=== PATIENT | female | born 1990 | race Caucasian/White ===

== ENCOUNTER 2023-10-22 13:34 | Outpatient (CLI) | payer BC, SELFPAY ==
--- OUTSIDE RECORDS SUMMARY | 2023-11-07 16:36 | XMS_ITS | Clinical Summary ---
Author Organization [facility] Address [place], [place] [address] Care Team Providers Care Geriatric Care Manager Name Role Phone Ramon Bedolla NP Primary Care Provider [phone] Lisa Macias CNAustin Unavailable [phone] Allergies Active Allergy Reactions Criticality Noted Date Comments Amoxicillin Rash 05/26/2016 Tolerates cephalosporins Pollen Extracts Runny Nose 04/27/2018 DUST, POLLEN, MOLD, ....itchy watery eyes, stuffiness Medications Medication Sig Dispensed Refills Start Date End Date Status acetaminophen (TYLENOL EXTRA STRGTH) 500 mg tablet Take 2 tablets by mouth every 6 hours if needed. Max acetaminophen dose: 4000mg in 24 hrs. 0 06/20/2017 Active cholecalciferol (Vitamin D) 1,000 unit capsule Take 1 Capsule (1,000 units) by mouth once daily. 0 08/16/2020 Active melatonin 5 mg tab tablet Take 1 Tablet (5 mg) by mouth at bedtime if needed for Sleep. 0 08/16/2020 Active aspirin (ECOTRIN) 81 mg enteric coated tabletIndications:E ncounter for supervision of other normal in first trimester Take 1 Tablet (81 mg) by mouth once daily. 90 Tablet 3 11/20/2022 Active clotrimazole (LOTRIMIN) 1 % cream Apply topically to affected area(s) two times daily. To rash on back 06/16/2023 Active Httxxduy-Og-Msd-Fe- FA tab tabletIndications:H igh-risk in first trimester Take 1 Tablet by mouth once daily. 90 Tablet 3 06/16/2023 Active fluticasone (50 mcg per actuation) nasal solution (FLONASE)Indication s:Rhinitis medicamentosa INHALE 2 SPRAY(S) IN EACH NOSTRIL ONCE DAILY 16 g 8 09/11/2023 Active cetirizine (Allergy Relief, cetirizine,) 10 mg tabletIndications:S easonal allergies Take 1 tablet by mouth once daily 90 Tablet 2 09/13/2023 Active famotidine (PEPCID) 20 mg tabletIndications:H eartburn TAKE 1 TABLET BY MOUTH AT BEDTIME 90 Tablet 2 09/13/2023 Active Active Problems Problem Noted Date Diagnosed Date Obesity affecting in second trimester 08/05/2023 Low-lying placenta in second trimester 4 [facility] Supervision of high-risk 4 Overview: Napoleon Munoz : 1990 [facility] ULTRASOUND/TESTING PATIENT Support person name: Solo ULTRASOUND TYPE: 09/30/23 Growth US, TVS for low lying placenta REASON FOR VISIT: BMI > 30 NEXT VISIT ALERTS: Final MICHELE by LMP LMP Date: Patient's last menstrual period was 03/20/2023 (exact date). MICHELE: 12/25/23 Early US: Date: 05/26/23 GA: 9w4d MICHELE: 12/25/23 PrePregnancy Weight: 189 Height: 5'5.75 BMI: 30.7 PLANS & FUTURE APPOINTMENTS: ULTRASOUND/GROWTH PLAN: - Through: - Growth: Next TESTING PLAN: - Testing: Through DELIVERY PLAN: - Scheduled delivery: - Preferred delivery location: PRIMARY DIAGNOSIS: 33 y.o. Estimated Date of Delivery: 12/25/23 BMI 32 SAB x 2, IAB x 1 PREVIOUS ULTRASOUNDS: 08/05/23 ([facility] L2@19w5d) EFW 314 grams, percentile: 50, low lying posterior placenta with placental edge measuring 1.58cm from the internal os. (PCP)05/26/23 GA: 9w4d MICHELE: 12/25/23 ECHO: REFERRING PROVIDER/CLINIC: Lisa Macias CNM - [facility] Primary approves scheduling of recommended ultrasounds/testing: Yes SPECIALISTS/CONSULTS: Include: Specialty MD Clinic Name Phone# [place] and ADDED TO PATIENT CARE TEAM Yes GENETICS: NIPT: Low risk CARE COORDINATION: PERTINENT LABS: Labs reviewed? Yes Normal? Yes Blood type: B Rh Positive Antibody screen: Negative PERTINENT MEDS: bASA PLAN OF CARE: Original and updated POC 08/05/23 CB RECOMMENDATIONS: -Return to primary provider for continued care. -The option of amniocentesis was presented. -No medication changes are indicated. -No BPPs or NSTs recommended. -Recommend a follow up ultrasound at 28-32 weeks for growth and to evaluate placental location. Vaginal ultrasound is recommended with color Doppler even if the low lying placenta has resolved, since this is a risk factor for vasa previa. -Further delivery recommendations will depend on the findings of the next ultrasound. Seasonal allergies 06/16/2023 High platelet count 05/28/2023 High-risk in first trimester Overview: [facility] - at 33 y.o. FOB: Napoleon Final Estimated Date of Delivery: 12/25/2023 by LMP FOB: sex: girl High Risk? YES Obesity: pre preg BMI 30__ ~TWG recommendations _11-20__ lbs ~documentation of weight, nutrition and exercise every visit ~*new OB HGBA1C ___ ~routine GCT ___ ~ASA Yes - reviewed ~level II ___ ~growth no Low lying placenta-1.58 cm from internal os on level II ultrasound ~[facility] recommends follow up ultrasound at 28-32 weeks for growth and to evaluate placental location. ~Vaginal ultrasound is recommended with color Doppler even if the low lying placenta has resolved, since this is a risk factor for vasa previa. High platelet count- recheck at next visit, consider hematology referral if levels become significantly elevated 1- dating on 05/26/23- Single living intrauterine gestation at 9 weeks 4 days, EDC 12/25/2023. 2- Level II anatomy scan- SLIUP at 19w5d, EFW 314g (50%). Normal anatomy. DVP 6.53 CM. Cervical Length 3.8cm. Low lying placenta with edge 1.58cm from internal os. Follow up growth and placenta location with TV doppler at 28-32 weeks to rule out vasa previa. 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 Plan: colposcopy Cauda equina syndrome 06/19/20172020 Encounters Date Type Department Care Team Description 09/30/2023 8:26 AM CDT - 09/30/2023 11:59 PM CDT Hospital Encounter [facility] [address] [place] [address] Clover Kimball MD Supervision of high risk , antepartum (Primary Dx); Low-lying placenta in second trimester 09/30/2023 Travel 09/25/2023 Telephone [facility] [address] [place] [address] Brooke James CNM Form (written orders for sacroiliac support and breast pump) 09/12/2023 Refill [facility] [address] [place] [address] Ramon Bedolla, MARIELLA Refill Request (Famotidine) 09/12/2023 Refill [facility] [address] [place] [address] Ramon Bedolla, MARIELLA Refill Request (Allergy Relief (Cetirizine)) 09/11/2023 Refill [facility] [address] [place] [address] Ramon Bedolla, MARIELLA Refill Request (Fluticasone (50 Mcg Per Actuation) Nasal) 08/18/2023 4:00 PM CDT OB Encounter [facility] [address] [place] [address] Jasmina Mari CNM Care (MICHELE 12/25/23 GA 21w4d) 08/18/2023 Travel from Last 3 Months Immunizations Name Administration Dates Next Due DTaP 01/10/1997,10/18/1994,1991 ,1991 MMR 11/25/2003 Polio Virus, Unspecified 01/10/1997,10/18/1994,0 1991,1991 Td (Age >=7 Years) 11/25/2003 Tdap 07/26/2019 Family History Medical History Relation Name Comments Asthma Brother 1 Diabetes type II Brother 1 pre-diabeti c Sleep apnea Brother 1 Asthma Brother 2 Asthma Brother 3 No Known Problems Brother 4 Diabetes type II Father pre-diabeti c Other Father Disc herniation Sleep apnea Father Cancer-breast Maternal Aunt Cancer-colon Maternal Grandfather Parkinsonism Maternal Grandmother Autoimmune disease Mother Cancer-colon Mother Other Mother Cancer-breast Paternal Aunt No Known Problems Paternal Grandfather Clotting disorder No Family History Preeclampsia No Family History Unexplained No Family History no SI DS, IUFD Relation Name Status Comments Brother 1 Alive Brother 2 Alive Brother 3 Alive Brother 4 Alive Father Alive Maternal Aunt Maternal Grandfather Maternal Grandmother Mother Alive Paternal Aunt Paternal Grandfather Paternal Grandmother Social History Tobacco Use Types Packs/Day Years Used Date Smoking Tobacco: Never Passive Smoke Exposure: Never Smokeless Tobacco: Never Tobacco Cessation:Counseling Given: Not Answered Alcohol Use Standard Drinks/Week Comments No 0 (1 standard drink = 0.6 oz pur e alcohol) PHQ-2 Answer Date Recorded PHQ-2 TOTAL SCORE 0 06/16/2023 Social Connections Answer Date Recorded Frequency of Communication with Friends and Fami ly 0 06/16/2023 Financial Resource Strain Answer Date R ecorded Difficulty of Paying Living Expenses 3 06/16/2023 Difficulty of Paying Living Expenses Not on file 06/16/2023 Food Insecurity Answer Date Recorded Worried About Running Out of Food in the Last Ye ar 1 06/16/2023 Transportation Needs Answer Date Record ed Lack of Transportation (Medical) 1 06/16/2023 Housing Stability Answer Date Recorded Unable to Pay for Housing in the Last Year 1 06/16/2023 Estimated Date of Delivery Comme nts Yes 12/25/2023 Sex and Gender Information Value Date Recorded Sex Assigned at Not on file Gender Identity Not on file Sexual Orientation Not on file Obstetrics History Para Term AB IAB SAB Ectopic Multiple Livin g Live Births 4 0 0 0 3 0 2 0 0 0 0 Date Outcome GA Total Labor Labor/2nd/3rd Weight Sex Type Anes PTL Tisha A1 A5 Name Clin 2013 AB ELECTIV E AB Comments:System Genera elizabeth. Please review and update details. 022 SAB 9w0 d 023 SAB 10w 6d Current Summary Episode Dates Number of Fetuses Estimated Date of Delivery 05/26/2023 - Present (11/07/2023) 1 12/25/2023 (set by Kika Tate on 05/26/2023 based on Alternate MICHELE Entry) Dating Summary Based On MICHELE GA Diff Last Menstrual Period on 03/20/2023 (Exact Date) 12/25/2023 Same Alternate MICHELE Entry 12/25/2023 Working Vitals Pregravid Weight Height TWG (As of 11/07/2023) Pregrav id BMI 85.7 kg (189 lb) 1.67 m (5' 5.75) 6.8 kg (15 lb) 30.7 4 Date GA Fund Present FHR Mvmt BP Weight Edema Alb Glu Ket Dil/ Eff/Sta 4 19w5d Inpatient data not displayed here. See encounter summary. 27w5d Inpatient data not displayed here. See encounter summary. Notes Progress Notes - Hospital En counter - 09/30/2023 - GA:27w5d 09/30/2023 - 27w5d - Pete Lancaster MB[facility] Ultrasound Visit Your patient had an ultrasound with [facility] on 09/30/2023. The report is ready and can be found in the Results review section of the [facility] chart. Recommendations regarding further care are listed below. The Impression from the report is below. Thank you for sending her to see us. Referred By: LISA MACIAS Indications Code 27 weeks gestation of Z3A.27 Maternal Obesity - BMI >30 Low Risk NIPT IMPRESSIONS: Intrauterine at 27w 5d. presentation is Breech. EFW 1126 grams, percentile: 42. Deepest Vertical Pocket of amniotic fluid: 6.1 cm. No major anomalies were identified on limited survey. Appropriate symmetric interval growth. Transabdominal and transcervical ultrasound was performed to assess the placental relationship to cervical internal os. Placental location: Posterior. Placental edge lies 2.25 cm from the internal cervical os. No vasa previa was suspected. There is no evidence of placenta previa. The transabdominal cervical length is 4.4 cm. RECOMMENDATIONS: -Return to primary OB provider for continued care. -No follow up ultrasounds were scheduled with [facility]. COMMENT: The patient was seen by the Perinatologist today. The previous ultrasound and the records were reviewed. The results of today's ultrasound were communicated to the patient and answered relevant questions. New government regulations related to the Century Cures act require that this note be released to the patient immediately, sometimes before the referring provider has been contacted. A portion of the information was presented verbally to the patient. The remainder is submitted as background for the referring provider, to be discussed as needed. Medical Decision Making: Low Complexity 15235 Limited Diagnoses including with suspected placenta previa. Limited Data including review of prior ultrasound and review of prior external notes. Minimal risk of morbidity or mortality to the fetus from additional testing. Services Provided: Procedures Code FOLLOW UP GROWTH 41196.0 TRANSVAGINAL ULTRASOUND 77402.0 Progress Notes - OB Encounte r - 08/18/2023 - GA:21w4d 08/18/2023 - w4d - Jasmina Mari CNM 33 y.o. with SIUP at 21w4d Concerns today: Had vomiting and nausea for a few days. Feeling better now. Baby is active daily. Reviewed warning signs - no concerns. Explained GCT, plan to do at next visit Will review TDAP at next visit BPs remain normotensive. TWG +6.8 kg (15 lb), pre-gravid BMI 30.74 anatomy US reviewed: low lying placenta Encouraged pt to register for childbirth classes. 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 Teaching: FM, PTL risks & symptoms, OB warning signs, when/how to call. Orders Placed This Encounter GLUCOSE,GESTATIONAL CBC W PLT NO DIFF TREPONEMA PALLIDUM Jasmina Mari CNM .................... 08/18/2023 4:06 PM Progress Notes - Hospital En counter - 08/05/2023 - GA:19w5d 08/05/2023 - w5d - Clover Kimball MD [facility] Ultrasound 08/05/23 Your patient had an ultrasound with [facility] on 08/05/23 The report is ready and can be found in the Results review section of the [facility] chart. The Impression from the report is below. Thank you for the opportunity to participate in the care of this eleonora patient. Clover Kimball MD .................... 08/05/2023 2:20 PM Referred By: LISA MACIAS Indications Code 19 weeks gestation of Z3A.19 Maternal Obesity - BMI >30 Low Risk NIPT IMPRESSION: Intrauterine at 19w 5d. presentation is Cephalic. EFW 314 grams, percentile: 50. Growth parameters and estimated weight are appropriate for gestational age. No major structural anomalies identified. No markers for aneuploidy identified. Deepest Vertical Pocket of amniotic fluid: 6.53 cm. The cervical length is 3.8 cm. There is a low lying posterior placenta with placental edge measuring 1.58cm from the internal os. RECOMMENDATIONS: -Return to primary provider for continued care. -The option of amniocentesis was presented. -No medication changes are indicated. -No BPPs or NSTs recommended. -Recommend a follow up ultrasound at 28-32 weeks for growth and to evaluate placental location. Vaginal ultrasound is recommended with color Doppler even if the low lying placenta has resolved, since this is a risk factor for vasa previa. -Further delivery recommendations will depend on the findings of the next ultrasound. -The patient was directed to schedule with [facility] as discussed at their visit today. -Patient directed to schedule at the front desk receptionist on the way out, or to call [facility] within 2 business days to schedule follow up. CONSULT: Present findings are reassuring with respect to anatomy. Alternatives available for detecting anomalies, aneuploidy and predicting developmental outcome for this were thoroughly discussed. The risks, benefits and limitations of maternal serum screening, ultrasound, and genetic amniocentesis were thoroughly reviewed with the patient. At the conclusion of our visit the patient declined any further genetic testing, being satisfied by the risk reduction of today's normal ultrasound study. Counseling included that the finding of a low-lying placenta in the second trimester (placental edge <20mm from cervical os) was seen today. The majority of low- lying placentas diagnosed in the second trimester will resolve. Those that do not may increase the risk of antepartum/intrapartum vaginal bleeding. We recommend a follow up ultrasound at 28-32 weeks to evaluate placental location. Vaginal ultrasound with color Doppler is recommended since low lying placenta, even if resolved, is a risk factor for vasa previa. New government regulations related to the 21st Century Cures act require that this note be released to the patient immediately, sometimes before the referring provider has been contacted. A portion of the information was presented verbally to the patient. The remainder is submitted as background for the referring provider, to be discussed as needed. Medical Decision Making: Moderate Level 13754 Moderate number/complexity of problems including an undiagnosed new problem with uncertain prognosis (low lying placenta) Moderate amount and/or complexity of Data reviewed and analyzed including review of prior ultrasound, ordering another ultrasound, and review of prior external notes Low risk of morbidity or mortality from amniocentesis which was considered and declined. Services Provided: Procedures Code DETAIL ANATOMY 81994.0 Progress Notes - OB Encounte r - 06/30/2023 - GA:14w4d 06/30/2023 - w - Lisa Díaz CNM Estimated Date of Delivery: 12/25/23, 14w4d Reviewed weight and b/p (+ 0lbs since last visit, TWG 7lbs) Teaching: Kick Count, signs of labor, second trimester usual symptoms, nutrition, hydration, rest, exercise, child education options, when and how to call. Reviewed the first trimester labs and ultrasound results YES. Concerns: Nervous about miscarriage. Wanting to see baby by BSUS today if possible. Visualized, movement present during unofficial US. Panorama test Yes - WNL AFP screening 15-20 weeks Still deciding Early GCT screening: Not indicated ACOG criteria for early GDM screening reviewed. - The following risk factors are identified: BMI >25. - Plan for early GDM screening: no. Early GDM screening should be considered if BMI >25 (-Scottish w/ BMI >23) and any of the following criteria are met: Physical inactivity (sedentary lifestyle) First-degree relative with diabetes (type not specified) High-risk race/ethnicity (, , , Scottish, ) History of macrosomic (>4,000 g or 8 lb 13 oz) History of GDM in previous (early screen even if normal BMI) History of impaired glucose tolerance (A1c >5.6%, elevated fasting glucose, or abnormal glucose testing in previous ) Hypertension (BP > 140/90 or on therapy for HTN) History of cardiovascular disease Dyslipidemia - HDL < 35 mg/dL (0.90 mmol/L) or Triglycerides > 250 mg/dL (2.92 mmol/L) Clinical conditions associated with insulin resistance (pre-gravid BMI > 40 kg/m2, PCOS, acanthosis nigricans, physical inactivity) 05/26/2023 1:00 PM 06/16/2023 3:00 PM PHQ Depression Screening Date of PHQ exam (doc flow) 05/26/2023 06/16/2023 1. Lack of interest/pleasure 0 - Not at all 0 - Not at all 2. Feeling down/depressed 0 - Not at all 0 - Not at all PHQ-2 TOTAL SCORE 0 0 3. Trouble sleeping 2 - More than half the days 1 - Several days 4. Decreased energy 3 - Nearly every day 1 - Several days 5. Appetite change 3 - Nearly every day 1 - Several days 6. Feelings of failure 0 - Not at all 0 - Not at all 7. Trouble concentrating 0 - Not at all 0 - Not at all 8. Activity level 0 - Not at all 0 - Not at all 9. Hurting yourself 0 - Not at all 0 - Not at all PHQ-9 TOTAL SCORE 8 3 PHQ-9 Severity Level mild none Functional Impairment somewhat difficult not difficult at all Anatomy ultrasound ordered: yes Level II at [facility] Reviewed AVS with patient and has no other questions. Lisa Macias APRN CNM 06/30/2023 11:15 AM MARTHA charting has been reviewed and approved for this patient? s record. Jasmina Mari CNM .................... 06/30/2023 2:02 PM MERCHANT Progress Notes - OB Encounte r - 05/26/2023 - GA:9w4d 05/26/2023 - 9w4d - Anam James CNM Images from the original note were not included. FIRST OBSTETRICAL EXAM - CNM HPI: Dora Munoz is a 33 y.o. female, , here today to establish care with the [facility]. Previous [facility] CNM patient yes. Gestational Age: Unknown LMP: Patient's last menstrual period was 03/20/2023 (exact date). Estimated Date of Delivery: 12/25/2023. Based on LMP, confirmed by first trimester ultrasound yes. High Risk: Obesity Accompanied by: Napoleon Patient Concerns Today: Fatigue Nausea- feels better if she eats throughout day. Naked juices help. Recurrent loss- worried about another loss happening Previous care for this : serial HCGs Planned : Planned, Desired FOB: Napoleon, involved Other children: no symptoms: nausea, fatigue, and food aversions Bleeding since LMP: Yes - has one occurrence of spotting about 2 weeks ago, no spotting since Blood type: B Rh Positive Pre- weight: 189 lbs Pre- BMI: 30.74 Dietary restrictions: No Maternal ethnicity: /White, Language: Tanzanian. Partner ethnicity: /White, Language: Tanzanian. ALLERGIES Allergies Allergen Reactions Amoxicillin Rash Tolerates cephalosporins Pollen Extracts Runny Nose DUST, POLLEN, MOLD, ....itchy watery eyes, stuffiness CURRENT MEDICATIONS Current Outpatient Medications: acetaminophen (TYLENOL EXTRA STRGTH) 500 mg tablet, Take 2 tablets by mouth every 6 hours if needed. Max acetaminophen dose: 4000mg in 24 hrs., Disp: , Rfl: 0 Allergy Relief, cetirizine, 10 mg tablet, Take 1 tablet by mouth once daily, Disp: 90 Tablet, Rfl: 0 aspirin (ECOTRIN) 81 mg enteric coated tablet, Take 1 Tablet (81 mg) by mouth once daily., Disp: 90 Tablet, Rfl: 3 cholecalciferol (Vitamin D) 1,000 unit capsule, Take 1 Capsule (1,000 units) by mouth once daily., Disp: , Rfl: 0 clotrimazole (LOTRIMIN) 1 % cream, Apply topically to affected area(s) two times daily for 14 days., Disp: 45 g, Rfl: 0 famotidine (PEPCID) 20 mg tablet, Take 1 Tablet (20 mg) by mouth at bedtime., Disp: , Rfl: 0 fluticasone (50 mcg per actuation) nasal solution (FLONASE), Inhale 2 Sprays to both nostrils once daily., Disp: 16 g, Rfl: 1 melatonin 5 mg tab tablet, Take 1 Tablet (5 mg) by mouth at bedtime if needed for Sleep., Disp: , Rfl: 0 Dpujvmmn-Lg-Qqr-Fe-FA tab tablet, Take 1 Tablet by mouth once daily., Disp: , Rfl: Medications have been reviewed by me and are current to the best of my knowledge and ability. Reviewed yes MENSTRUAL HISTORY Patient's last menstrual period was 03/20/2023 (exact date). regular q 28-30 days Was LMP normal?: yes Conception date known- not exact OB HISTORY OB History Para Term AB Living 3 0 0 0 3 0 SAB IAB Ectopic Multiple Live Births 2 0 0 0 0 # Outcome Date GA Lbr Yariel/2nd Weight Sex Delivery Anes PTL Lv 3 SAB 11/16/22 10w6d 2 SAB 04/15/22 9w0d 1 AB 2013 ELECTIVE AB Comments: System Generated. Please review and update details. Previous OB complications (recurrent loss/miscarriage, demise, abnormal growth, labor / dilation / , gestational diabetes, gestational HTN, preeclampsia, shoulder dystocia, vacuum/forceps delivery, , hemorrhage, trauma, 3rd/4th degree lacerations, NICU admission): No Genetic Hx/factors (maternal or paternal known history of personal or familial genetic mutations or disorders, developmental delay/disorder, autism, congenital anomalies including blindness or deafness, or other known genetic conditions): no. Familial risk factors (first-order relatives with diabetes, hypertension, preeclampsia, recurrent loss, DVT/PE, stroke, genetic mutations): no. 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 & Units 03/31/2018 11:25 AM 04/28/2018 11:49 AM 07/26/2019 2:10 PM 08/16/2020 9:17 AM 09/14/2020 11:28 AM 02/20/2022 10:15 AM 02/14/2023 10:55 AM Cervical Cancer Screening History Pap Result (Beaker) (none) NEGATIVE FOR INTRAEPITHELIAL LESION OR MALIGNANCY (NIL) NEGATIVE FOR INTRAEPITHELIAL LESION OR MALIGNANCY (NIL) NEGATIVE FOR INTRAEPITHELIAL LESION OR MALIGNANCY (NIL) NEGATIVE FOR INTRAEPITHELIAL LESION OR MALIGNANCY (NIL) Specimen Adequacy Satisfactory for evaluation Endocervical component present Satisfactory for evaluation Endocervical component present Satisfactory for evaluation Endocervical component present Satisfactory for evaluation Endocervical component present Menstrual Status Regular Periods Regular Periods Regular Periods Regular Periods LMP 07/17/2019 07/28/2020 01/26/2022 01/08/2023 Last pap date (user entered) 03/10/18 07/26/19 08/16/20 02/20/22 Last pap result (user entered) LSIL NIL NIL NIL Additional info (user entered) None given None given None given None given HPV Result (Beaker) Negative Negative Positive HPV Type 16 Negative Negative Negative HPV Type 18 Negative Negative Negative Other High Risk Types Negative Negative Negative Colposcopy Yes Path Diagnosis (Beaker) A) CERVIX, 3 O'CLOCK, BIOPSY: 1. Benign cervical mucosa a. Sampling: Ectocervix and minimal detached endocervical epithelium b. Transformation zone: Not visualized 2. Negative for glandular neoplasia, squamous intraepithelial lesion, and malignancy B) CERVIX, 7:00, BIOPSY: 1. High grade squamous intraepithelial lesion (YUE 2-3) a. Sampling: Ectocervix, disrupted dysplastic metaplastic epithelium and scant endocervix b. Intact transformation zone: Not visualized 2. Negative for invasive carcinoma C) ENDOCERVIX, CURETTAGE: 1. High grade squamous intraepithelial lesion (YUE 2-3) 2. Sampling: Ectocervix and endocervix 3. Negative for invasive carcinoma CERVIX, LEEP CONIZATION: 1. High grade squamous intraepithelial lesion (YUE 3) a. Sampling: Ectocervix and endocervix b. Transformation zone: Visualized in all quadrants c. Margin status: i. Ectocervical margin: Free of YUE ii. Endocervical margin: Free of YUE 2. Negative for invasive malignancy Path Comment (Beaker) This patient's Pap test [id number] (LSIL) is reviewed. The Pap test findings appear to be explained by the findings in the current specimens. Case Report (specimen info) Pathology Report Case: [id number] Authorizing Provider: Megha Garcia Collected: 03/31/2018 1125 MD Birgit Ordering Location: [facility] Received: 03/31/2018 1241 Clinic Pathologist: Luiza Fuentes MD Specimens: A) - Cervix, 3 oclock B) - Cervix, 7 oclock C) - Endocervical Curettings Pathology Report [id number]: [id number] Authorizing Provider: Ángela Bunch MD Collected: 04/28/2018 1149 Ordering Location: [facility] Received: 04/28/2018 1227 Pathologist: Scout Hartley MD Specimen: Cervical Cone / LEEP, cervical cone LEEP, stitch at 12:00 Gynecologic Cytology Report [id number]: [id number] Authorizing Provider: Ramon Bedolla NP Collected: 07/26/2019 1410 Ordering Location: [facility] Received: 07/26/2019 1459 Clinic First Screen: Shyanne Gastelum Rescreen: Denae Lozano MD Specimen: TOLL OPERATOR ThinPrep Vial Screening, Cervical Gynecologic Cytology Report Case: [id number] Authorizing Provider: Ramon Bedolla NP Collected: 08/16/2020 0917 Ordering Location: [facility] Received: 08/16/2020 1013 Clinic First Screen: Baccam, Minie Specimen: TOLL OPERATOR ThinPrep Vial Screening, Cervical Gynecologic Cytology Report Case: [id number] Authorizing Provider: Ramon Bedolla NP Collected: 02/20/2022 1015 Ordering Location: [facility] Received: 02/20/2022 1041 Clinic First Screen: Baccam, Minie Rescreen: Tammy Freedman Specimen: TOLL OPERATOR ThinPrep Vial Screening, Cervical Gynecologic Cytology Report Case: [id number] Authorizing Provider: Nicky Crum CNM Collected: 02/14/2023 1055 Ordering Location: [facility] Received: 02/14/2023 1055 Clinic First Screen: Baccam, Minie Specimen: TOLL OPERATOR ThinPrep Vial Screening, Cervical Clinical info LGSIL YUE III 03/10/18 LSIL 03/31/18 COLP:YUE 2-3 04/28/18 LEEP:YUE 3, clear margins 07/26/19 NIL/HPV negative 08/16/20 NIL/HPV+ 09/14/20 [place]: Negative 02/20/22 NIL/HPV Negative 02/14/23 NIL/HPV Negative Plan: Pap and HPV 01/2024 PAP due: 01/2024 History of abnormal PAP smear: YES History of Colposcopy: YES History of LEEP/Laser/Cryo: YES Hx of breast / abdominal / uterine surgery: no STD HX: no HSV: no CHLAMYDIA PROBE Date Value Ref Range Status 04/03/2015 Negative Final N GONORRHOEAE PROBE Date Value Ref Range Status 04/03/2015 Negative Final PAST MEDICAL HISTORY Past Medical History: . Date Asthma Chronic back pain Migraine headache PAST SURGICAL HISTORY Past Surgical History: . Laterality Date COLPOSCOPY 03/31/2018 YUE 2-3 LAMINECTOMY, DISCECTOMY L5-S1 06/19/2017 LEEP PROCEDURE 04/28/2018 YUE 3, margins clear wart removed Lt foot FAMILY HISTORY Family History Problem Relation Age of Onset Other Mother Cancer-colon Mother Autoimmune disease Mother Other Father Disc herniation Diabetes type II Father pre-diabetic Sleep apnea Father Sleep apnea Brother Diabetes type II Brother pre-diabetic Asthma Brother Asthma Brother Asthma Brother No Known Problems Brother Parkinsonism Maternal Grandmother Cancer-colon Maternal Grandfather No Known Problems Paternal Grandfather Cancer-breast Maternal Aunt Cancer-breast Paternal Aunt Clotting disorder No Family History Unexplained No Family History no SIDS, IUFD Preeclampsia No Family History SOCIAL HISTORY Social History Tobacco Use Smoking Status Never Smokeless Tobacco Never Social History Socioeconomic History Marital status: Significant other Tobacco Use Smoking status: Never Smokeless tobacco: Never Vaping Use Vaping Use: Never used Substance and Sexual Activity Alcohol use: No Alcohol/week: 0.0 standard drinks of alcohol Drug use: No Sexual activity: Yes Partners: Male control/protection: None Social History Narrative Marital Status: , name: Napoleon, 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 Plans to continue until and then step away Living situation: living at home with family Animal exposure:dogs Diet: Water intake: adequate yes, calcium 2-3 servings per day yes, room for improvement, Dietary restrictions: Yes - avoids aspartame Caffeine: 1 cup a coffee a day, occasionally tea Access to food yes, referral to social security specialist no Safety Guns: No, locked Screening for sexual, physical or emotional abuse in childhood, adulthood or current relationship: unable to ask, pt not alone Have you ever been hit, kicked, pushed, or otherwise hurt or mistreated by someone important to you? unable to ask, pt not alone Is someone important to you yelling at you or threatening you or otherwise trying to control your life? unable to ask, pt not alone referral ADELFO Seat belt yes, texting when driving No RISK FACTORS Alcohol dependence: no Tobacco use: no Recreational drug use: none High-risk behaviors: none Occupational exposures: No Screening: Last dental exam yes- about 2 yrs ago Last eye exam no - does not need Ok with medically indicated transfusion yes Exercise: walking and hiking, harder in the last year RISK FACTORS DVT/PE: no Renal disease: no Alcohol dependence: no Tobacco use: no Recreational drug use: none High-risk behaviors: none Occupational exposures: none Screening for sexual, physical or emotional abuse in childhood, adulthood or current relationship: unable to ask, pt not alone REVIEW OF SYSTEMS: Constitutional: Negative for anorexia , weight loss , fever , and chills . POSITIVE for fatigue Respiratory: Negative for cough, dyspnea , and wheezing . Cardiovascular: Negative for chest discomfort, palpitations, lightheadedness , syncope , and leg edema . Gastrointestinal: Negative for vomiting , change in bowel habits , and melena . Positive for nausea Genitourinary:Negative for dysuria , urinary incontinence , and hematuria . Integument/breast: Negative for skin lesion(s), pruritis , skin color change , changed mole , breast lump, and nipple discharge . POSITIVE for rash between breasts and mid back Hematologic/lymphatic: Negative for easy bruising , bleeding, lymphadenopathy , and petechiae. Musculoskeletal:Negative for muscle weakness and bone pain . Neurological: Negative for seizures , speech problems , gait problems , and tremor. Psychiatric: Negative for panic attacks , hallucinations, and suicidal ideations . Endocrine: Negative for temperature intolerance. Allergic/Immunologic: Negative for angioedema and anaphylaxis . DEPRESSION SCREEN PHQ Score and Severity 11/20/2022 2:00 PM 05/26/2023 1:00 PM PHQ Depression Screening Date of PHQ exam (doc flow) 11/20/2022 05/26/2023 1. Lack of interest/pleasure 0 - Not at all 0 - Not at all 2. Feeling down/depressed 0 - Not at all 0 - Not at all PHQ-2 TOTAL SCORE 0 0 3. Trouble sleeping 0 - Not at all 2 - More than half the days 4. Decreased energy 1 - Several days 3 - Nearly every day 5. Appetite change 1 - Several days 3 - Nearly every day 6. Feelings of failure 0 - Not at all 0 - Not at all 7. Trouble concentrating 0 - Not at all 0 - Not at all 8. Activity level 0 - Not at all 0 - Not at all 9. Hurting yourself 0 - Not at all 0 - Not at all PHQ-9 TOTAL SCORE 2 8 PHQ-9 Severity Level none mild Functional Impairment not difficult at all somewhat difficult Intervention: Feels stable. Feels like mostly related to first trimester fatigue. YELENA Score and Severity 11/20/2022 2:00 PM 05/26/2023 1:00 PM YELENA-7 ANXIETY SCREENING YELENA date (doc flow) 11/20/2022 05/26/2023 Nervous, anxious 1 1 Cannot stop worrying 1 0 Worry about different things 1 0 Cannot relax 1 0 Feeling restless 0 0 Easily annoyed/irritated 1 1 Afraid of awful event 1 1 Score 6 3 Severity mild anxiety none PHYSICAL EXAM BP 110/54 (Cuff Site: Right Arm, Cuff Size: Adult Regular) Pulse 72 Ht 1.67 m (5' 5.75) Wt 88.9 kg (196 lb) LMP 03/20/2023 (Exact Date) BMI 31.88 kg/m?? General: well groomed, appears healthy, NAD. Psych: alert, oriented, behaviors appropriate. Neck/Thyroid: supple, symmetrical, no lymphadenopathy or masses. Lungs: normal chest wall, unlabored respirations, lungs clear to all bases. Heart: regular rate and rhythm, normal S1 S2, no murmur, click, gallop, or rub. Breast: full exam deferred. Skin exam- small patches of slightly raised plaques with flaky appearance- looks fungal in nature Abdomen: normal contour, soft, non-tender, uterine fundus not palpable, FHT not yet heard . Neuro: grossly intact, normal gait and speech, no tremor MSK: grossly normal, full ROM and normal strength w/ no deficits observed. Skin: intact, well perfused, small patches of slightly raised plaques with flaky appearance- looks fungal in nature <1cm. Mid back and between breasts. Pelvic: declined, not due for PAP and no concerns ASSESSMENT 33 y.o. at Unknown Encounter for New OB Midwifery visit Encounter Diagnoses Name Primary? High-risk in first trimester Yes Tinea corporis Patient's pre- BMI: 30.74 Recommended weight gain in based on pre- BMI: Prepgt BMI Recommended weight gain 18.5 and below 28 to 40 pounds 18.5 - 24.9 25 to 35 pounds 25 - 29.9 15 to 25 pounds 30 and Above 11 to 20 pounds Ms. Munoz's Body mass index is 31.88 kg/m??. This is out of the normal range for a 33 y.o. Normal range for ages 18+ is between 18.5 and 24.9. To lose weight we reviewed risks and benefits of appropriate options such as diet, exercise, and medications. Patient's strategy will be monitoring during - weight loss NOT recommended in PLAN Oriented to Hilary THOMAS service, care model, routine visits, locations, contact information, and patient education resources. Education: Hilary Thomas OB packet and Beginnings book/web site, healthy nutrition, dietary supplements, hydration, exercise, sleep hygiene, stress management, medication safety, avoidance of alcohol and drug use, physical and emotional changes of , options for genetic testing (carrier & ). Reviewed AVS with patient. Invite for compass sent. OB Care Coordination: Dating ultrasound - Yes had today. Dates align Maternal carrier screening for CF, SMA - No. genetic screening - will ask insurance . Indication for level II anatomy ultrasound? Yes - BMI >30 , order placed No Other indication for MPP consult? No Immunizations due: Influenza and COVID Labs: - New OB panel Yes - collected today , ok to review labs and POC via DocVersehart - Pap No- will be due at visit - GC/CT Yes - self collected today . -TGC No symptoms. - Additional testing indicated Yes - hgba1c collected . Current medications reviewed - changes indicated: No changes indicated. Recommendations for vitamin, folic acid, calcium and vitamin D3 reviewed . ACOG criteria for early GDM screening reviewed - identified risk factors in BOLD below. - Plan for early GDM screening: No - Plan: NEW OB HGBA1C Early GDM screening should be considered if BMI >25 (-Scottish w/ BMI >23) and any of the following criteria are met: -Physical inactivity -First-degree relative with diabetes -Racial/ethnic risk (, , , -Scottish, ) -History of weight >4 kg (~9 lbs) -History of GDM -PCOS -A1c >5.7%, impaired glucose tolerance, or impaired fasting glucose on prior testing -Clinical conditions associated w/ insulin resistance (pre-gravid BMI >40, acanthosis nigricans) -History of cardiovascular disease USPTF recommendations for low-dose ASA reviewed - identified risk factors in BOLD below. - Patient does not have history of gestational hypertension or pre eclampsia . - Low-dose ASA indicated per these guidelines: Yes - HIGH RISK (if any ONE of these risk factors) -Hx of preeclampsia; dena when accompanied by adverse outcome -Multifetal gestation -Chronic HTN -Type 1 or 2 diabetes -Renal disease -Autoimmune disease (SLE, antiphospholipid antibody syndrome, other) MODERATE RISK (consider if two or more of these) -Nulliparity -Obesity w BMI>30 -Family hx of preeclampsia (mother or sister) -Socio-demographic characteristics ( ethnicity, low SES) -Age > or = to 35 years -Personal hx factors (low weight, SGA, previous adverse outcome, > 10 year interval) LOW RISK (do not recommend low-dose aspirin) - Previous uncomplicated full-term delivery w/o hypertension HIGH RISK care plans added to OB problem list entry: Obesity Return to office in 4-6 week(s). 11. Discussed compass via mychart yes Rx for topical antifungal written for likely corpus tinea Total time: spent 70 minutes for this encounter including patient counseling & examination, documentation & care coordination. Brooke James CNM DNP, CARGO HANDLER, MARTHA.................... [facility] Added to tracks MERCHANT Last Filed Vital Signs Vital Sign Reading Time Taken Comments Blood Pressure 120/74 08/18/2023 3:58 PM CDT Pulse 90 08/18/2023 3:58 PM CDT Temperature 36.8 ??C (98.3 ??F) 06/11/2022 3:44 PM CS T Respiratory Rate 16 04/15/2022 7:23 PM WINE MERCHANT Oxygen Saturation 98% 06/11/2022 3:44 PM WINE MERCHANT Inhaled Oxygen Concentration - - Weight 92.5 kg (204 lb) 08/18/2023 3:58 PM CDT Height 167 cm (5' 5.75) 06/16/2023 2:51 PM WINE MERCHANT Body Mass Index 33.18 06/16/2023 2:51 PM WINE MERCHANT Plan of Treatment Health Maintenance Due Date Last Done Comments COVID-19 vaccine series ( season) 2023 Influenza for age 9-49 01/18/2024 Pap test for age 21-65 02/15/2024 3, 02/14/2023, 02/20/2022, Additional history exists BMI (ht and wt on same day) for age 18+ 06/16/2024 06/16/2023, 05/26/2023, 11/20/2022, Additional history exists Depression screening for age 12+ 06/16/2024 06/16/2023, 05/26/2023, 11/22/2022, Additional history exists Tetanus booster 07/25/2029 07/26/2019, 11/25/2003 Tdap Completed 07/26/2019 HIV for age 15-65 Completed 05/26/2023, 11/20/2022 Hepatitis C screening for age 18-79 Completed 05/26/2023, 11/20/2022, 02/20/2022 Pneumococcal series for age 6-64 Aged Out No longer eligible based on patient's age to complete this topic Procedures Procedure Name Priority Date/Time Associated Diagnosis Comments US OB FOLLOW UP ANY TRI SINGLE TA Routine 09/30/2023 9:23 AM CDT Low-lying placenta in second trimester ANTI HIV 1/2 Routine 05/26/2023 2:10 PM WINE MERCHANT High-risk in first trimester ANTI HCV Routine 05/26/2023 2:10 PM WINE MERCHANT High-risk in first trimester HPV THIN PREP Routine 02/14/2023 10:55 AM CDT Screening for cervical cancer from Last 3 Months or Most Recently Relevant to Health Maintenance Results * Growth Follow Up Any Trimester (CPT 83750) If BPP w/NST needed use Testing section for order (09/30/2023 9:23 AM CDT) Anatomical Region Laterality Modality , 2or 3 TRIMESTER Ultrasound 09/30/2023 8:28 AM CDT Narrative 09/30/2023 9:31 AM CDT Referred By: LISA MACIAS ?? Indications Code 27 weeks gestation of Z3A.27 Maternal Obesity - BMI >30 Low Risk NIPT IMPRESSIONS: Intrauterine at 27w 5d. presentation is Breech. EFW 1126 grams, percentile: 42. Deepest Vertical Pocket of amniotic fluid: 6.1 cm. ? No major anomalies were identified on limited survey. Appropriate symmetric interval growth. Transabdominal and transcervical ultrasound was performed to assess the placental relationship to cervical internal os. Placental location: Posterior. Placental edge lies 2.25 cm from the internal cervical os. No vasa previa was suspected. There is no evidence of placenta previa. The transabdominal cervical length is 4.4 cm. ?? RECOMMENDATIONS: -Return to primary OB provider for continued care. -No follow up ultrasounds were scheduled with [facility]. COMMENT: The patient was seen by the Perinatologist today. ??The previous ultrasound and the records were reviewed. ??The results of today's ultrasound were communicated to the patient and answered relevant questions. New government regulations related to the Cures act require that this note be released to the patient immediately, sometimes before the referring provider has been contacted. ??A portion of the information was presented verbally to the patient. ??The remainder is submitted as background for the referring provider, to be discussed as needed. Medical Decision Making: Low Complexity 37676 ?Limited Diagnoses including with suspected placenta previa. ?Limited Data including review of prior ultrasound and review of prior external notes. ?Minimal risk of morbidity or mortality to the fetus from additional testing. Services Provided: Procedures Code FOLLOW UP GROWTH 25544.0 TRANSVAGINAL ULTRASOUND 04810.0 Procedure Note Pete Lancaster MBBS - 09/30/2023 Referred By: LISA MACIAS IndicationsCode 27 weeks gestation of [id number] Maternal Obesity - BMI >30 Low Risk NIPT IMPRESSIONS: Intrauterine at 27w 5d. presentation is Breech. EFW 1126 grams, percentile: 42. Deepest Vertical Pocket of amniotic fluid: 6.1 cm. No major anomalies were identified on limited survey. Appropriate symmetric interval growth. Transabdominal and transcervical ultrasound was performed to assess theplacental relationship to cervical internal os. Placental location: Posterior. Placental edge lies 2.25 cm from theinternal cervical os. No vasa previa was suspected. There is no evidence of placenta previa. The transabdominal cervical length is 4.4 cm. RECOMMENDATIONS: -Return to primary OB provider for continued care. -No follow up ultrasounds were scheduled with [facility]. COMMENT: The patient was seen by the Perinatologist today. The previous ultrasoundand the records were reviewed. The results of today's ultrasound werecommunicated to the patient and answered relevant questions. New government regulations related to the Cures act requirethat this note be released to the patient immediately, sometimes before the referringprovider has been contacted. A portion of the information was presented verbally to thepatient. The remainder is submitted as background for the referring provider, to be discussed asneeded. Medical Decision Making: Low Complexity 32803 Limited Diagnoses including with suspected placentaprevia. Limited Data including review of prior ultrasound and review of priorexternal notes. Minimal risk of morbidity or mortality to the fetus from additionaltesting. Services Provided: ProceduresCode FOLLOW UP TQRNIN16067.0 TRANSVAGINAL [id number] Clover Kimball MD US * ANTI HCV (05/26/2023 2:10 PM WINE MERCHANT) Pathologist [facility] HEPATITIS C ANTIBODY Non-Reacti ve Non-React brianna 05/26/2023 11:21 PM WINE MERCHANT [facility] Comment:Please note, per www .CDC.gov: If a patient is known to be at high risk of HCV infection, or is symptomatic, and the physician's suspicion of HCV infection is high, HCV RNA testing is often employed and is of diagnostic value, even after an initial negative anti-HCV test result. Blood BLOOD SPECIMEN / Unknown Venipuncture / Unknown 05/26/2023 2:10 PM WINE MERCHANT 05/26/2023 2:10 PM WINE MERCHANT Brooke James CNM [facility] [address] [place] [address], [place] * ANTI HIV 1/2 (05/26/2023 2:10 PM WINE MERCHANT) HIV-1/HIV-2 SCREEN Non-Reacti ve Non-Reacti ve 05/26/2023 11:04 PM WINE MERCHANT [facility] Comment:HIV-1 p24 and HIV-1/ HIV-2 Ab Not Detected. Blood BLOOD SPECIMEN / Unknown Venipuncture / Unknown 05/26/2023 2:10 PM WINE MERCHANT 05/26/2023 2:10 PM WINE MERCHANT Brooke James CNM SEND OUTS [facility] [address] [place] [address], * HPV HIGH RISK (02/14/2023 10:55 AM CDT) Pathologist [facility] TYPE 16 Negative Negative 02/20/2023 11:10 AM CDT [facility] TYPE 18 Negative Negative 02/20/2023 11:10 AM CDT [facility] OTHER HIGH RISK TYPES Negative Negative 02/20/2023 11:10 AM CDT [facility] Other (Cervical) Non-Blood / Unknown 02/14/2023 10:55 AM CDT 02/18/2023 7:07 AM CDT Narrative [facility] - 02/20/2023 11:10 AM CDT HPV types 16, 18, 31, 33, 35, 39, 45, 51, 52, 56, 58, 59, 66 and 68 DNA were undetectable or below the pre-set threshold. Methodology: [employer] Annmarie 4800 HPV Test Nicky Crum CNM MICROBIOLOGY [facility] [address] [place] [address], from Last 3 Months or Most Recently Relevant to Health Maintenance Advance Directives * Full Code (Latest Code Status on File) Date Activated Date Inactivated Comments 04/28/2018 9:05 AM 04/28/2018 3:15 PM * Full Code Date Activated Date Inactivated Comments 06/19/2017 7:34 PM 06/20/2017 4:59 PM * Full Code Date Activated Date Inactivated Comments 06/19/2017 1:47 PM 06/19/2017 7:34 PM * Full Code Date Activated Date Inactivated Comments 06/19/2017 1:38 PM 06/19/2017 1:47 PM Care Teams Geriatric Care Manager Relationship Specialty Start Date End Date Ramon Bedolla NP [address] [place] [address] PCP - General Nurse Practitioner 04/27/18 Lisa Macias CNM [address] [facility] [address] [place] [address] Referring Provider Certified Nurse Sheet Metal Duct Worker Supervisor 06/30/23
== END 2023-10-22 13:35 | disposition home or self-care (01) ==
LOC: NFLDREF 11-07 16:34
PROVIDERS: Visit Provider Physician Assistant
DX: Z34.83 Encounter for supervision of other normal pregnancy, third trimester (principal)
CPT/HCPCS: 86592

== ENCOUNTER 2023-10-24 09:11 | Outpatient (CLI) | payer BC, SELFPAY ==
--- OUTSIDE RECORDS SUMMARY | 2023-11-11 09:11 | XMS_ITS | Clinical Summary ---
Author Organization [facility] Address [place], [place] [address] Care Team Providers Care Assistant Professor Of Dietetics Name Role Phone Ramon Bedolla NP Primary Care Provider [phone] Lisa Macias CNAustin Unavailable [phone] Allergies Active Allergy Reactions Criticality Noted Date [...] daily. To rash on back 06/16/2023 Active Ldrnnewd-Lv-Bac-Fe- FA tab tabletIndications:H igh-risk in first trimester [...] 08/05/2023 Low-lying placenta in second trimester 4 [facility] Supervision of high-risk 4 Overview: Napoleon Munoz : 1990 [facility] ULTRASOUND/TESTING PATIENT Support person name: Solo [...] 2, IAB x 1 PREVIOUS ULTRASOUNDS: 08/05/23 ([facility] L2@19w5d) EFW 314 grams, percentile: 50, [...] from internal os on level II ultrasound ~[facility] recommends follow up ultrasound at 28-32 [...] margins 07/26/19 NIL/HPV negative 08/16/20 NIL/HPV+ 09/14/20 Galien: Negative 02/20/22 NIL/HPV Negative 02/14/23 NIL/HPV Negative [...] - 09/30/2023 11:59 PM CDT Hospital Encounter [facility] [address] [place] [address] Clover Kimball MD Supervision of high risk , antepartum (Primary Dx); Low-lying placenta in second trimester 09/30/2023 Travel 09/25/2023 Telephone [facility] [address] [place] [address] Brooke James CNM Form (written orders for sacroiliac support and breast pump) 09/12/2023 Refill [facility] [address] [place] [address] Ramon Bedolla, MARIELLA Refill Request (Famotidine) 09/12/2023 Refill [facility] [address] [place] [address] Ramon Bedolla, MARIELLA Refill Request (Allergy Relief (Cetirizine)) 09/11/2023 Refill [facility] [address] [place] [address] Ramon Bedolla, MARIELLA Refill Request (Fluticasone (50 Mcg Per Actuation) Nasal) 08/18/2023 4:00 PM CDT OB Encounter [facility] [address] [place] [address] Jasmina Mari CNM Care (MICHELE 12/25/23 GA [...] Estimated Date of Delivery 05/26/2023 - Present (11/11/2023) 1 12/25/2023 (set by Kika Tate on 05/26/2023 based on Alternate MICHELE Entry) Dating Summary Based On MICHELE [place] Diff Last Menstrual Period on 03/20/2023 (Exact Date) 12/25/2023 Same Alternate MICHELE Entry 12/25/2023 Working Vitals Pregravid Weight Height TWG (As of 11/11/2023) Pregrav id BMI 85.7 kg (189 lb) [...] 09/30/2023 - 27w5d - Pete Lancaster MBBS [facility] Ultrasound Visit Your patient had an ultrasound with [facility] on 09/30/2023. The report is ready and can be found in the Results review section of the [facility] chart. Recommendations regarding further care are listed [...] -No follow up ultrasounds were scheduled with [facility]. COMMENT: The patient was seen by [...] as needed. Medical Decision Making: Low Complexity 15663 Limited Diagnoses including with suspected placenta previa. Limited Data including review of prior ultrasound and review of prior external notes. Minimal risk of morbidity or mortality to the fetus from additional testing. Services Provided: Procedures Code FOLLOW UP GROWTH 21761.0 TRANSVAGINAL ULTRASOUND 78763.0 Progress Notes - OB Encounte r - [...] pt to register for childbirth classes. 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 [...] 08/05/23 Your patient had an ultrasound with [facility] on 08/05/23 The report is ready and can be found in the Results review section of the [facility] chart. The Impression from the report is [...] -The patient was directed to schedule with [facility] as discussed at their visit today. -Patient directed to schedule at the help desk specialist on the way out, or to call [...] as needed. Medical Decision Making: Moderate Level 72797 Moderate number/complexity of problems including an undiagnosed new problem with uncertain prognosis (low lying placenta) Moderate amount and/or complexity of Data reviewed and analyzed including review of prior ultrasound, ordering another ultrasound, and review of prior external notes Low risk of morbidity or mortality from amniocentesis which was considered and declined. Services Provided: Procedures Code DETAIL ANATOMY 73276.0 Progress Notes - OB Encounte r - [...] screening should be considered if BMI >25 (-Uruguayan w/ BMI >23) and any of the following criteria are met: Physical inactivity (sedentary lifestyle) First-degree relative with diabetes (type not specified) High-risk race/ethnicity (, , , [place], ) History of macrosomic (>4,000 g or [...] Anatomy ultrasound ordered: yes Level II at [facility] Reviewed AVS with patient and has no other questions. Lisa Macias APRN CNM 06/30/2023 11:15 AM MARTHA charting has been reviewed and approved for this patient? s record. Jasmina Mari CNM .................... 06/30/2023 2:02 PM HATCHERY MANAGER Progress Notes - OB Encounte r - [...] Dietary restrictions: No Maternal ethnicity: /White, Language: Maldivian. Partner ethnicity: /White, Language: Maldivian. ALLERGIES Allergies Allergen Reactions Amoxicillin Rash Tolerates [...] needed for Sleep., Disp: , Rfl: 0 Kowyncbs-Kp-Qui-Fe-FA tab tablet, Take 1 Tablet by mouth [...] recurrent loss, DVT/PE, stroke, genetic mutations): no. COMPUTER METHODS ANALYST HISTORY Latest Ref Rng & Units 03/31/2018 [...] Path Comment (Beaker) This patient's Pap test [id number] (LSIL) is reviewed. The Pap test findings appear to be explained by the findings in the current specimens. Case Report (specimen info) Pathology Report Case: [id number] Authorizing Provider: Megha Garcia Collected: 03/31/2018 1125 MD Birgit Ordering Location: [facility] Received: 03/31/2018 1241 Clinic Pathologist: Luiza Fuentes MD Specimens: A) - Cervix, 3 oclock B) - Cervix, 7 oclock C) - Endocervical Curettings Pathology Report Case: [id number] Authorizing Provider: Ángela Bunch MD Collected: 04/28/2018 1149 Ordering Location: [facility] Received: 04/28/2018 1227 Pathologist: Scout Hartley MD Specimen: Cervical Cone / LEEP, cervical cone LEEP, stitch at 12:00 Gynecologic Cytology Report Case: [id number] Authorizing Provider: Ramon Bedolla NP Collected: 07/26/2019 1410 Ordering Location: [facility] Received: 07/26/2019 1459 Clinic First Screen: Shyanne Gastelum Rescreen: Denae Lozano MD Specimen: COMPUTER METHODS ANALYST ThinPrep Vial Screening, Cervical Gynecologic Cytology Report Case: [id number] Authorizing Provider: Ramon Bedolla NP Collected: 08/16/2020 0917 Ordering Location: [facility] Received: 08/16/2020 1013 Clinic First Screen: Baccam, Minie Specimen: COMPUTER METHODS ANALYST ThinPrep Vial Screening, Cervical Gynecologic Cytology Report Case: [id number] Authorizing Provider: Ramon Bedolla NP Collected: 02/20/2022 1015 Ordering Location: [facility] Received: 02/20/2022 1041 Clinic First Screen: Baccam, Minie Rescreen: Tammy Freedman Specimen: COMPUTER METHODS ANALYST ThinPrep Vial Screening, Cervical Gynecologic Cytology Report Case: [id number] Authorizing Provider: Nicky Crum CNM Collected: 02/14/2023 1055 Ordering Location: [facility] Received: 02/14/2023 1055 Clinic First Screen: Baccam, Minie Specimen: COMPUTER METHODS ANALYST ThinPrep Vial Screening, Cervical Clinical info LGSIL YUE III 03/10/18 LSIL 03/31/18 COLP:YUE 2-3 04/28/18 LEEP:YUE 3, clear margins 07/26/19 NIL/HPV negative 08/16/20 NIL/HPV+ 09/14/20 Galien: Negative 02/20/22 NIL/HPV Negative 02/14/23 NIL/HPV Negative [...] Narrative Marital Status: , name: Napoleon, 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 Brooke James CNM DNP, DINING HOST, MARTHA.................... [facility] Added to tracks HATCHERY MANAGER Last Filed Vital Signs Vital Sign Reading Time Taken Comments Blood Pressure 120/74 08/18/2023 3:58 PM CDT Pulse 90 08/18/2023 3:58 PM CDT Temperature 36.8 ??C (98.3 ??F) 06/11/2022 3:44 PM CS T Respiratory Rate 16 04/15/2022 7:23 PM FISH HATCHERY MANAGER Oxygen Saturation 98% 06/11/2022 3:44 PM FISH HATCHERY MANAGER Inhaled Oxygen Concentration - - Weight 92.5 kg (204 lb) 08/18/2023 3:58 PM CDT Height 167 cm (5' 5.75) 06/16/2023 2:51 PM FISH HATCHERY MANAGER Body Mass Index 33.18 06/16/2023 2:51 PM FISH HATCHERY MANAGER Plan of Treatment Health Maintenance Due Date [...] ANTI HIV 1/2 Routine 05/26/2023 2:10 PM FISH HATCHERY MANAGER High-risk in first trimester ANTI HCV Routine 05/26/2023 2:10 PM FISH HATCHERY MANAGER High-risk in first trimester HPV THIN PREP Routine 02/14/2023 10:55 AM CDT Screening for cervical cancer from Last 3 Months or Most Recently Relevant to Health Maintenance Results * Growth Follow Up Any Trimester (CPT 28893) If BPP w/NST needed use Testing section [...] -No follow up ultrasounds were scheduled with [facility]. COMMENT: The patient was seen by [...] as needed. Medical Decision Making: Low Complexity 05676 ?Limited Diagnoses including with suspected placenta previa. ?Limited Data including review of prior ultrasound and review of prior external notes. ?Minimal risk of morbidity or mortality to the fetus from additional testing. Services Provided: Procedures Code FOLLOW UP GROWTH 28676.0 TRANSVAGINAL ULTRASOUND 58311.0 Procedure Note Pete Lancaster MBBS - 09/30/2023 Referred By: LISA MACIAS IndicationsCode 27 weeks gestation of [id number] Maternal Obesity - BMI >30 Low Risk [...] -No follow up ultrasounds were scheduled with [facility]. COMMENT: The patient was seen by [...] discussed asneeded. Medical Decision Making: Low Complexity 90274 Limited Diagnoses including with suspected placentaprevia. Limited Data including review of prior ultrasound and review of priorexternal notes. Minimal risk of morbidity or mortality to the fetus from additionaltesting. Services Provided: ProceduresCode FOLLOW UP HBBIPU22760.0 TRANSVAGINAL UCZUONLAVV06431.0 Clover Kimball MD US * ANTI HCV (05/26/2023 2:10 PM FISH HATCHERY MANAGER) Pathologist [facility] HEPATITIS C ANTIBODY Non-Reacti ve Non-React brianna 05/26/2023 11:21 PM FISH HATCHERY MANAGER [facility] Comment:Please note, per www .CDC.gov: If a patient is known to be at high risk of HCV infection, or is symptomatic, and the physician's suspicion of HCV infection is high, HCV RNA testing is often employed and is of diagnostic value, even after an initial negative anti-HCV test result. Blood BLOOD SPECIMEN / Unknown Venipuncture / Unknown 05/26/2023 2:10 PM FISH HATCHERY MANAGER 05/26/2023 2:10 PM FISH HATCHERY MANAGER Brooke James CNM [facility] [address] [place] [address], [place] * ANTI HIV 1/2 (05/26/2023 2:10 PM FISH HATCHERY MANAGER) HIV-1/HIV-2 SCREEN Non-Reacti ve Non-Reacti ve 05/26/2023 11:04 PM FISH HATCHERY MANAGER [facility] Comment:HIV-1 p24 and HIV-1/ HIV-2 Ab Not Detected. Blood BLOOD SPECIMEN / Unknown Venipuncture / Unknown 05/26/2023 2:10 PM FISH HATCHERY MANAGER 05/26/2023 2:10 PM FISH HATCHERY MANAGER Brooke James CNM SEND OUTS [facility] [address] [place] [address], * HPV HIGH RISK (02/14/2023 10:55 AM CDT) Pathologist [facility] TYPE 16 Negative Negative 02/20/2023 11:10 AM CDT [facility] TYPE 18 Negative Negative 02/20/2023 11:10 AM CDT [facility] OTHER HIGH RISK TYPES Negative Negative 02/20/2023 11:10 AM CDT [facility] Other (Cervical) Non-Blood / Unknown 02/14/2023 10:55 AM CDT 02/18/2023 7:07 AM CDT Narrative [facility] - 02/20/2023 11:10 AM CDT HPV types 16, 18, 31, 33, 35, 39, 45, 51, 52, 56, 58, 59, 66 and 68 DNA were undetectable or below the pre-set threshold. Methodology: [employer] Annmarie 4800 HPV Test Nicky Crum CNM MICROBIOLOGY [facility] [address] [place] [address], from Last 3 Months or Most Recently [...] 1:38 PM 06/19/2017 1:47 PM Care Teams Assistant Professor Of Dietetics Relationship Specialty Start Date End Date Ramon Bedolla NP [address] [place] [address] PCP - General Nurse Practitioner 04/27/18 Lisa Macias CNM [address] [facility] [address] [place] [address] Referring Provider Certified Nurse Shrimp Peeling Machine Operator 06/30/23
== END 2023-10-24 09:12 | disposition home or self-care (01) ==
LOC: NFLDREF 11-11 09:10
PROVIDERS: Visit Provider Advanced Practice Midwife
DX: R73.09 Other abnormal glucose (principal)
CPT/HCPCS: 82951; 82952; 86592

== ENCOUNTER 2023-12-03 15:18 | Outpatient (CLI) | payer BC, SELFPAY ==
--- OUTSIDE RECORDS SUMMARY | 2023-12-06 14:52 | XMS_ITS | Clinical Summary ---
Author Organization [facility] [employer] [facility] Address [place], [place] [address] Care Team Providers Care Returned Goods Sorter Name Role Phone Ramon Bedolla NP Primary Care Provider [phone] Lisa Macias CNAustin Unavailable [phone] Allergies Active Allergy Reactions Criticality Noted Date [...] daily. To rash on back 06/16/2023 Active Vhbenunt-Sr-Aeq-Fe- FA tab tabletIndications:H igh-risk in first trimester [...] 08/05/2023 Low-lying placenta in second trimester 4 [facility] Supervision of high-risk 4 Overview: Napoleon Munoz : 1990 [facility] ULTRASOUND/TESTING PATIENT Support person name: Solo ULTRASOUND [...] 2, IAB x 1 PREVIOUS ULTRASOUNDS: 08/05/23 ([facility] L2@19w5d) EFW 314 grams, percentile: 50, low [...] from internal os on level II ultrasound ~[facility] recommends follow up ultrasound at 28-32 weeks [...] margins 07/26/19 NIL/HPV negative 08/16/20 NIL/HPV+ 09/14/20 [place]: Negative 02/20/22 NIL/HPV Negative 02/14/23 NIL/HPV Negative [...] - 09/30/2023 11:59 PM CDT Hospital Encounter [facility] [address] [place] [address] Clover Kimball MD Supervision of high risk , antepartum (Primary Dx); Low-lying placenta in second trimester 09/30/2023 Travel 09/25/2023 Telephone [facility] [address] [place] [address] Brooke James CNM Form (written orders for sacroiliac support and breast pump) 09/12/2023 Refill [facility] [address] [place] [address] Ramon Bedolla, MARIELLA Refill Request (Famotidine) 09/12/2023 Refill [facility] [address] [place] [address] Ramon Bedolla, MARIELLA Refill Request (Allergy Relief (Cetirizine)) 09/11/2023 Refill [facility] [address] [place] [address] Ramon Bedolla, MARIELLA Refill Request (Fluticasone (50 Mcg Per Actuation) Nasal) from Last 3 Months Immunizations Name Administration [...] Estimated Date of Delivery 05/26/2023 - Present (12/06/2023) 1 12/25/2023 (set by Kika Tate on 05/26/2023 based on Alternate MICHELE Entry) Dating Summary Based On MICHELE GA Diff Last Menstrual Period on 03/20/2023 (Exact Date) 12/25/2023 Same Alternate MICHELE Entry 12/25/2023 Working Vitals Pregravid Weight Height TWG (As of 12/06/2023) Pregrav id BMI 85.7 kg (189 lb) 1.67 m (5' 5.75) 6.8 kg (15 lb) 30.7 4 Date GA Fund Present FHR Mvmt BP Weight Edema Alb Glu Ket Dil/ Eff/Sta 4 19w5d Inpatient data not displayed here. See encounter summary. 4 27w5d Inpatient data not displayed here. See encounter summary. Notes Progress Notes - Hospital En counter - 09/30/2023 - GA:27w5d 09/30/2023 - 27w5d - Pete Lancaster MBBS [facility] Ultrasound Visit Your patient had an ultrasound with [facility] on 09/30/2023. The report is ready and can be found in the Results review section [facility]. Recommendations regarding further care are [...] -No follow up ultrasounds were scheduled with [facility]. COMMENT: The patient was seen by the [...] as needed. Medical Decision Making: Low Complexity 31617 Limited Diagnoses including with suspected placenta previa. Limited Data including review of prior ultrasound and review of prior external notes. Minimal risk of morbidity or mortality to the fetus from additional testing. Services Provided: Procedures Code FOLLOW UP GROWTH 83965.0 TRANSVAGINAL ULTRASOUND 58560.0 Progress Notes - OB Encounte r - 08/18/2023 - GA:21w4d 08/18/2023 - w - Jasmina Mari CNM 33 y.o. with [...] pt to register for childbirth classes. 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 Teaching: FM, PTL risks & symptoms, OB warning signs, when/how to call. Orders Placed This Encounter GLUCOSE,GESTATIONAL CBC W PLT NO DIFF TREPONEMA PALLIDUM Jasmina Mari CNM .................... 08/18/2023 4:06 PM Progress Notes - Hospital En counter - 08/05/2023 - GA:19w5d 08/05/2023 - 19w5d - Clover Kimball MD MPP Ultrasound 08/05/23 Your patient had an ultrasound with [facility] on 08/05/23 The report is ready and can be found in the Results review section of the [facility]. The Impression from the report [...] -The patient was directed to schedule with [facility] as discussed at their visit today. -Patient directed to schedule at the front desk auxiliary on the way out, or to call [facility] within 2 business days to schedule follow [...] previa. New government regulations related to the Century Cures act require that this note be released to the patient immediately, sometimes before the referring provider has been contacted. A portion of the information was presented verbally to the patient. The remainder is submitted as background for the referring provider, to be discussed as needed. Medical Decision Making: Moderate Level 62539 Moderate number/complexity of problems including an undiagnosed new problem with uncertain prognosis (low lying placenta) Moderate amount and/or complexity of Data reviewed and analyzed including review of prior ultrasound, ordering another ultrasound, and review of prior external notes Low risk of morbidity or mortality from amniocentesis which was considered and declined. Services Provided: Procedures Code DETAIL ANATOMY 10872.0 Progress Notes - OB Encounte r - 06/30/2023 - GA:14w4d 06/30/2023 - 14w4d - Naif patino, Lisa Alberto CNM Estimated Date of Delivery: 12/25/23, 14w4d [...] screening should be considered if BMI >25 (-Zimbabwean w/ BMI >23) and any of the following criteria are met: Physical inactivity (sedentary lifestyle) First-degree relative with diabetes (type not specified) High-risk race/ethnicity (, , , [place]an, ) History of macrosomic (>4,000 g or [...] Anatomy ultrasound ordered: yes Level II at [facility] Reviewed AVS with patient and has no other questions. Lisa Macias APRN CNM 06/30/2023 11:15 AM MARTHA charting has been reviewed and approved for this patient? s record. Jasmina Mari CNM .................... 06/30/2023 2:02 PM BUILDER Progress Notes - OB Encounte r - 05/26/2023 - GA:9w4d 05/26/2023 - 9w4d - Anam James CNM Images from the original note were not included. FIRST OBSTETRICAL EXAM - MARTHA HPI: Dora Munoz is a 33 y.o. female, , here today to [facility]. Previous [facility] patient yes. Gestational Age: Unknown LMP: Patient's [...] Dietary restrictions: No Maternal ethnicity: /White, Language: Greek. Partner ethnicity: /White, Language: Greek. ALLERGIES Allergies Allergen Reactions Amoxicillin Rash Tolerates [...] needed for Sleep., Disp: , Rfl: 0 Mqevywsa-Sd-Oxn-Fe-FA tab tablet, Take 1 Tablet by mouth [...] recurrent loss, DVT/PE, stroke, genetic mutations): no. PESTICIDE USE MEDICAL COORDINATOR HISTORY Latest Ref Rng & Units 03/31/2018 [...] Path Comment (Beaker) This patient's Pap test [id number] (LSIL) is reviewed. The Pap test findings appear to be explained by the findings in the current specimens. Case Report (specimen info) Pathology Report Case: [id number] Authorizing Provider: Megha Garcia Collected: 03/31/2018 1125 MD Birgit Ordering Location: [facility] Received: 03/31/2018 1241 Clinic Pathologist: Luiza Fuentes MD Specimens: A) - Cervix, 3 oclock B) - Cervix, 7 oclock C) - Endocervical Curettings Pathology Report Case: [id number] Authorizing Provider: Ángela Bunch MD Collected: 04/28/2018 1149 Ordering Location: [facility] Received: 04/28/2018 1227 Pathologist: Scout Hartley MD Specimen: Cervical Cone / LEEP, cervical cone LEEP, stitch at 12:00 Gynecologic Cytology Report Case: [id number] Authorizing Provider: Ramon Bedolla NP Collected: 07/26/2019 1410 Ordering Location: [facility] Received: 07/26/2019 1459 Clinic First Screen: Shyanne Gastelum Rescreen: Denae Lozano MD Specimen: PESTICIDE USE MEDICAL COORDINATOR ThinPrep Vial Screening, Cervical Gynecologic Cytology Report Case: [id number] Authorizing Provider: Ramon Bedolla NP Collected: 08/16/2020 0917 Ordering Location: [facility] Received: 08/16/2020 1013 Clinic First Screen: Baccam, Minie Specimen: PESTICIDE USE MEDICAL COORDINATOR ThinPrep Vial Screening, Cervical Gynecologic Cytology Report Case: [id number] Authorizing Provider: Ramon Bedolla NP Collected: 02/20/2022 1015 Ordering Location: [facility] Received: 02/20/2022 1041 Clinic First Screen: Baccam, Minie Rescreen: Tammy Freedman Specimen: PESTICIDE USE MEDICAL COORDINATOR ThinPrep Vial Screening, Cervical Gynecologic Cytology Report Case: [id number] Authorizing Provider: Nicky Crum CNM Collected: 02/14/2023 1055 Ordering Location: [facility] Received: 02/14/2023 1055 Clinic First Screen: Baccam, Minie Specimen: PESTICIDE USE MEDICAL COORDINATOR ThinPrep Vial Screening, Cervical Clinical info LGSIL YUE III 03/10/18 LSIL 03/31/18 COLP:YUE 2-3 04/28/18 LEEP:YUE 3, clear margins 07/26/19 NIL/HPV negative 08/16/20 NIL/HPV+ 09/14/20 [place]: Negative 02/20/22 NIL/HPV Negative 02/14/23 NIL/HPV Negative [...] Narrative Marital Status: , name: Napoleon, 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 Brooke James CNM DNP, INFORMATION SECURITY RISK ANALYST, CNM.................... [facility] Added to tracks BUILDER Last Filed Vital Signs Vital Sign Reading Time Taken Comments Blood Pressure 120/74 08/18/2023 3:58 PM CDT Pulse 90 08/18/2023 3:58 PM CDT Temperature 36.8 ??C (98.3 ??F) 06/11/2022 3:44 PM CS T Respiratory Rate 16 04/15/2022 7:23 PM JIG BUILDER Oxygen Saturation 98% 06/11/2022 3:44 PM JIG BUILDER Inhaled Oxygen Concentration - - Weight 92.5 kg (204 lb) 08/18/2023 3:58 PM CDT Height 167 cm (5' 5.75) 06/16/2023 2:51 PM JIG BUILDER Body Mass Index 33.18 06/16/2023 2:51 PM JIG BUILDER Plan of Treatment Health Maintenance Due Date Last Done Comments COVID-19 vaccine series ( season) 2023 Influenza for age 9-49 01/18/2024 Pap test for age 21-65 02/15/2024 , 02/14/2023, 02/20/2022, Additional history exists BMI (ht [...] ANTI HIV 1/2 Routine 05/26/2023 2:10 PM JIG BUILDER High-risk in first trimester ANTI HCV Routine 05/26/2023 2:10 PM JIG BUILDER High-risk in first trimester HPV THIN PREP Routine 02/14/2023 10:55 AM CDT Screening for cervical cancer from Last 3 Months or Most Recently Relevant to Health Maintenance Results * Growth Follow Up Any Trimester (CPT 37174) If BPP w/NST needed use Testing section [...] -No follow up ultrasounds were scheduled with [facility]. COMMENT: The patient was seen by the [...] as needed. Medical Decision Making: Low Complexity 72375 ?Limited Diagnoses including with suspected placenta previa. ?Limited Data including review of prior ultrasound and review of prior external notes. ?Minimal risk of morbidity or mortality to the fetus from additional testing. Services Provided: Procedures Code FOLLOW UP GROWTH 36275.0 TRANSVAGINAL ULTRASOUND 79814.0 Procedure Note Pete Lancaster MBBS - 09/30/2023 Referred By: LISA MACIAS IndicationsCode 27 weeks gestation of [id number].27 Maternal Obesity - BMI >30 Low Risk [...] -No follow up ultrasounds were scheduled with [facility]. COMMENT: The patient was seen by the Perinatologist today. The previous ultrasoundand the records were reviewed. The results of today's ultrasound werecommunicated to the patient and answered relevant questions. New government regulations related to the Century Cures act requirethat this note be released to the patient immediately, sometimes before the referringprovider has been contacted. A portion of the information was presented verbally to thepatient. The remainder is submitted as background for the referring provider, to be discussed asneeded. Medical Decision Making: Low Complexity 33733 Limited Diagnoses including with suspected placentaprevia. Limited Data including review of prior ultrasound and review of priorexternal notes. Minimal risk of morbidity or mortality to the fetus from additionaltesting. Services Provided: ProceduresCode FOLLOW UP [id number] TRANSVAGINAL [id number] Clover Kimball MD US * ANTI HCV (05/26/2023 2:10 PM JIG BUILDER) HEPATITIS C ANTIBODY Non-Reacti ve Non-React brianna 05/26/2023 11:21 PM JIG BUILDER [facility] Comment:Please note, per [...] Unknown Venipuncture / Unknown 05/26/2023 2:10 PM JIG BUILDER 05/26/2023 2:10 PM JIG BUILDER Brooke James CNM [facility] [address] [place] [address], [place] * ANTI HIV 1/2 (05/26/2023 2:10 PM JIG BUILDER) HIV-1/HIV-2 SCREEN Non-Reacti ve Non-Reacti ve 05/26/2023 11:04 PM JIG BUILDER [facility] Comment:HIV-1 p24 and HIV-1/ HIV-2 Ab Not Detected. Blood BLOOD SPECIMEN / Unknown Venipuncture / Unknown 05/26/2023 2:10 PM JIG BUILDER 05/26/2023 2:10 PM JIG BUILDER Brooke James CNM SEND OUTS [facility] [address] [address], * HPV HIGH RISK (02/14/2023 10:55 AM CDT) TYPE 16 Negative Negative 02/20/2023 11:10 AM CDT [facility] TYPE 18 Negative Negative 02/20/2023 11:10 AM CDT [facility] OTHER HIGH RISK TYPES Negative Negative 02/20/2023 11:10 AM CDT [facility] Other (Cervical) Non-Blood / Unknown 02/14/2023 10:55 AM CDT 02/18/2023 7:07 AM CDT Narrative [facility] - 02/20/2023 11:10 AM CDT HPV types 16, 18, 31, 33, 35, 39, 45, 51, 52, 56, 58, 59, 66 and 68 DNA were undetectable or below the pre-set threshold. Methodology: Jimmy Annmarie 4800 HPV Test Nicky Crum CNM MICROBIOLOGY Performing Organization Address City[facility] Co de Phone Number [facility] [address] [place] [address], from Last 3 Months or Most Recently [...] 1:38 PM 06/19/2017 1:47 PM Care Teams Returned Goods Sorter Relationship Specialty Start Date End Date Ramon Bedolla TRUCK BODY BUILDER [address] [place] [address] PCP - General Nurse Practitioner 04/27/18 Lisa Macias CNM [address] [place] [address] Referring Provider Certified Nurse Mc Kay Stitcher 06/30/23
== END 2023-12-03 15:19 | disposition home or self-care (01) ==
LOC: NFLDREF 12-06 14:50
PROVIDERS: Visit Provider Advanced Practice Midwife
DX: Z34.93 Encounter for supervision of normal pregnancy, unspecified, third trimester (principal); Z3A.36 36 weeks gestation of pregnancy
CPT/HCPCS: 87081; 87653

== ENCOUNTER 2023-12-31 06:59 | Outpatient (CLI) | payer BC, SELFPAY ==
--- OUTSIDE RECORDS SUMMARY | 2023-12-31 07:01 | XMS_ITS | Clinical Summary ---
Author Organization [email or web address] [facility] Address [place], [place] [address] Care Team Providers Care Resin Painter Name Role Phone Ramon Bedolla NP Primary Care Provider [phone] Lisa Macias CNAustin Unavailable [phone] Allergies Active Allergy Reactions Criticality Noted Date [...] daily. To rash on back 06/16/2023 Active Owldfjkf-Ex-Aas-Fe- FA tab tabletIndications:H igh-risk in first trimester [...] 08/05/2023 Low-lying placenta in second trimester 4 [facility] Supervision of high-risk 4 Overview: Napoleon Munoz : 1990 [facility] ULTRASOUND/TESTING PATIENT Support person name: Solo [...] 2, IAB x 1 PREVIOUS ULTRASOUNDS: 08/05/23 ([facility] L2@19w5d) EFW 314 grams, percentile: 50, [...] from internal os on level II ultrasound ~[facility] recommends follow up ultrasound at 28-32 [...] margins 07/26/19 NIL/HPV negative 08/16/20 NIL/HPV+ 09/14/20 [place]: Negative 02/20/22 NIL/HPV Negative 02/14/23 NIL/HPV Negative [...] - 09/30/2023 11:59 PM CDT Hospital Encounter [facility] [address] [place] [address] Clover Kimball MD Supervision of high risk , antepartum (Primary Dx); Low-lying placenta in second trimester 09/30/2023 Travel from Last 3 Months Immunizations Name [...] and update details. 022 SAB 9w0 d 07/01/2 023 SAB 10w 6d Current Summary Episode Dates Number of Fetuses Estimated Date of Delivery 05/26/2023 - Present (12/31/2023) 1 12/25/2023 (set by Kika Tate on 05/26/2023 based on Alternate MICHELE Entry) Dating Summary Based On MICHELE GA Diff Last Menstrual Period on 03/20/2023 (Exact Date) 12/25/2023 Same Alternate MICHELE Entry 12/25/2023 Working Vitals Pregravid Weight Height TWG (As of 12/31/2023) Pregrav id BMI 85.7 kg (189 lb) [...] 09/30/2023 - 27w5d - Pete Lancaster MBBS MPP Ultrasound Visit Your patient had an ultrasound with [facility] on 09/30/2023. The report is ready and can be found in the Results review section of the [facility]. Recommendations regarding further care are listed [...] -No follow up ultrasounds were scheduled with [facility]. COMMENT: The patient was seen by [...] as needed. Medical Decision Making: Low Complexity 42127 Limited Diagnoses including with suspected placenta previa. Limited Data including review of prior ultrasound and review of prior external notes. Minimal risk of morbidity or mortality to the fetus from additional testing. Services Provided: Procedures Code FOLLOW UP GROWTH 02858.0 TRANSVAGINAL ULTRASOUND 68350.0 Progress Notes - OB Encounte r - 08/18/2023 - GA:21w4d 08/18/2023 - 21w4d - Jasmina Mari CNM 33 y.o. with [...] pt to register for childbirth classes. Explained pulpit operator care for labor support, info in AVS. Teaching: FM, PTL risks & symptoms, OB warning signs, when/how to call. Orders Placed This Encounter GLUCOSE,GESTATIONAL CBC W PLT NO DIFF TREPONEMA PALLIDUM Jasmina Mari CNM .................... 08/18/2023 4:06 PM Progress Notes - Hospital En counter - 08/05/2023 - GA:19w5d 08/05/2023 - 19w5d - Clover Kimball MD [facility] Ultrasound 08/05/23 Your patient had an ultrasound with [facility] on 08/05/23 The report is ready and can be found in the Results review section of the [facility]. The Impression from the report is [...] -The patient was directed to schedule with [facility] as discussed at their visit today. -Patient directed to schedule at the assistant front desk manager on the way out, or to call [facility] within 2 business days to schedule follow [...] previa. New government regulations related to the Cures act require that this note be released to the patient immediately, sometimes before the referring provider has been contacted. A portion of the information was presented verbally to the patient. The remainder is submitted as background for the referring provider, to be discussed as needed. Medical Decision Making: Moderate Level 36222 Moderate number/complexity of problems including an undiagnosed new problem with uncertain prognosis (low lying placenta) Moderate amount and/or complexity of Data reviewed and analyzed including review of prior ultrasound, ordering another ultrasound, and review of prior external notes Low risk of morbidity or mortality from amniocentesis which was considered and declined. Services Provided: Procedures Code DETAIL ANATOMY 39356.0 Progress Notes - OB Encounte r - 06/30/2023 - GA:14w4d 06/30/2023 - 14w4d - Lisa Díaz CNM Estimated Date of [...] screening should be considered if BMI >25 (-Iranian w/ BMI >23) and any of the following criteria are met: Physical inactivity (sedentary lifestyle) First-degree relative with diabetes (type not specified) High-risk race/ethnicity (, , , Iranian, ) History of macrosomic infant (>4,000 g or 8 lb 13 oz) [...] Anatomy ultrasound ordered: yes Level II at [facility] Reviewed AVS with patient and has no other questions. Lisa Macias APRN CNM 06/30/2023 11:15 AM MARTHA charting has been reviewed and approved for this patient? s record. Jasmina Mari CNM .................... 06/30/2023 2:[address] FIRE SPECIALIST SUPERVISOR Progress Notes - OB Encounte r - 05/26/2023 - GA:9w4d 05/26/2023 - 9w4d - Anam James CNM Images from the original note were not included. FIRST OBSTETRICAL EXAM - CNM HPI: Dora Munoz is a 33 y.o. female, , here today to [facility]. [facility] patient yes. Gestational Age: Unknown [...] Dietary restrictions: No Maternal ethnicity: /White, Language: Nepalese. Partner ethnicity: /White, Language: Nepalese. ALLERGIES Allergies Allergen Reactions Amoxicillin Rash Tolerates [...] needed for Sleep., Disp: , Rfl: 0 Neyzxknq-Xa-Hyh-Fe-FA tab tablet, Take 1 Tablet by mouth [...] 10w6d 2 SAB 04/15/22 9w0d 1 AB 2014 ELECTIVE AB Comments: System Generated. Please review [...] recurrent loss, DVT/PE, stroke, genetic mutations): no. BRANCH ASSOCIATE HISTORY Latest Ref Rng & Units 03/31/2018 [...] Path Comment (Beaker) This patient's Pap test [id number] (LSIL) is reviewed. The Pap test findings appear to be explained by the findings in the current specimens. Case Report (specimen info) Pathology Report Case: [id number] Authorizing Provider: Megha Garcia Collected: 03/31/2018 1125 MD Birgit Ordering Location: [facility] Received: 03/31/2018 1241 Clinic Pathologist: Luiza Fuentes MD Specimens: A) - Cervix, 3 oclock B) - Cervix, 7 oclock C) - Endocervical Curettings Pathology Report [id number]: [id number] Authorizing Provider: Ángela Bunch MD Collected: 04/28/2018 1149 Ordering Location: [facility] Received: 04/28/2018 1227 Pathologist: Scout Hartley MD Specimen: Cervical Cone / LEEP, cervical cone LEEP, stitch at 12:00 Gynecologic Cytology Report Case: [id number] Authorizing Provider: Ramon Bedolla NP Collected: 07/26/2019 1410 Ordering Location: [facility] Received: 07/26/2019 1459 Clinic First Screen: Shyanne Gastelum Rescreen: Denae Lozano MD Specimen: BRANCH ASSOCIATE ThinPrep Vial Screening, Cervical Gynecologic Cytology Report Case: [id number] Authorizing Provider: Ramon Bedolla NP Collected: 08/16/2020 0917 Ordering Location: [facility] Received: 08/16/2020 1013 Clinic First Screen: Baccam, Minie Specimen: BRANCH ASSOCIATE ThinPrep Vial Screening, Cervical Gynecologic Cytology Report Case: [id number] Authorizing Provider: Ramon Bedolla NP Collected: 02/20/2022 1015 Ordering Location: [facility] Received: 02/20/2022 1041 Clinic First Screen: Baccam, Minie Rescreen: Tammy Freedman Specimen: BRANCH ASSOCIATE ThinPrep Vial Screening, Cervical Gynecologic Cytology Report Case: [id number] Authorizing Provider: Nicky Crum CNM Collected: 02/14/2023 1055 Ordering Location: [facility] Received: 02/14/2023 1055 Clinic First Screen: Baccam, Minie Specimen: BRANCH ASSOCIATE ThinPrep Vial Screening, Cervical Clinical info LGSIL YUE III 03/10/18 LSIL 03/31/18 COLP:YUE 2-3 04/28/18 LEEP:YUE 3, clear margins 07/26/19 NIL/HPV negative 08/16/20 NIL/HPV+ 09/14/20 [place]: Negative 02/20/22 NIL/HPV Negative 02/14/23 NIL/HPV Negative [...] Marital Status: , name: Napoleon, 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 Carvalho Body mass index is 31.88 kg/m??. This is out of the normal range for a 33 y.o. Normal range for ages 18+ is between 18.5 and 24.9. To lose weight we reviewed risks and benefits of appropriate options such as diet, exercise, and medications. Patient's strategy will be monitoring during - weight loss NOT recommended in PLAN Oriented to Hilary KENYON service, care model, routine visits, locations, contact [...] ok to review labs and POC via mychart - Pap No- will be due at [...] screening should be considered if BMI >25 (-Iranian w/ BMI >23) and any of the following criteria are met: -Physical inactivity -First-degree relative with diabetes -Racial/ethnic risk (, , , -Iranian, ) -History of infant weight >4 kg (~9 lbs) -History of [...] & care coordination. Brooke James CNM DNP, BLAINE, MARTHA.................... [facility] Added to tracks ST FIRE SPECIALIST SUPERVISOR Last Filed Vital Signs Vital Sign Reading Time Taken Comments Blood Pressure 120/74 08/18/2023 3:58 PM CDT Pulse 90 08/18/2023 3:58 PM CDT Temperature 36.8 ??C (98.3 ??F) 06/11/2022 3:44 PM CS T Respiratory Rate 16 04/15/2022 7:23 PM FOREST FIRE SPECIALIST SUPERVISOR Oxygen Saturation 98% 06/11/2022 3:44 PM FOREST FIRE SPECIALIST SUPERVISOR Inhaled Oxygen Concentration - - Weight 92.5 kg (204 lb) 08/18/2023 3:58 PM CDT Height 167 cm (5' 5.75) 06/16/2023 2:51 PM FOREST FIRE SPECIALIST SUPERVISOR Body Mass Index 33.18 06/16/2023 2:51 PM FOREST FIRE SPECIALIST SUPERVISOR Plan of Treatment Health Maintenance Due Date [...] ANTI HIV 1/2 Routine 05/26/2023 2:10 PM FOREST FIRE SPECIALIST SUPERVISOR High-risk in first trimester ANTI HCV Routine 05/26/2023 2:10 PM FOREST FIRE SPECIALIST SUPERVISOR High-risk in first trimester HPV THIN PREP Routine 02/14/2023 10:55 AM CDT Screening for cervical cancer from Last 3 Months or Most Recently Relevant to Health Maintenance Results * Growth Follow Up Any Trimester (CPT 00617) If BPP w/NST needed use Testing section [...] -No follow up ultrasounds were scheduled with [facility]. COMMENT: The patient was seen by [...] as needed. Medical Decision Making: Low Complexity 98789 ?Limited Diagnoses including with suspected placenta previa. ?Limited Data including review of prior ultrasound and review of prior external notes. ?Minimal risk of morbidity or mortality to the fetus from additional testing. Services Provided: Procedures Code FOLLOW UP GROWTH 16507.0 TRANSVAGINAL ULTRASOUND 13028.0 Procedure Note Pete Lancaster MBBS - 09/30/2023 Referred By: LISA MACIAS IndicationsCode 27 weeks gestation of [id number] Maternal Obesity - BMI >30 Low Risk [...] -No follow up ultrasounds were scheduled with [facility]. COMMENT: The patient was seen by [...] discussed asneeded. Medical Decision Making: Low Complexity 87533 Limited Diagnoses including with suspected placentaprevia. Limited Data including review of prior ultrasound and review of priorexternal notes. Minimal risk of morbidity or mortality to the fetus from additionaltesting. Services Provided: ProceduresCode FOLLOW UP KRYLWB30403.0 TRANSVAGINAL [id number] Clover Kimball MD US * ANTI HCV (05/26/2023 2:10 PM FOREST FIRE SPECIALIST SUPERVISOR) HEPATITIS C ANTIBODY Non-Reacti ve Non-React brianna 05/26/2023 11:21 PM FOREST FIRE SPECIALIST SUPERVISOR [facility] Comment:Please note, per www .CDC.gov: If a patient is known to be at high risk of HCV infection, or is symptomatic, and the physician's suspicion of HCV infection is high, HCV RNA testing is often employed and is of diagnostic value, even after an initial negative anti-HCV test result. Blood BLOOD SPECIMEN / Unknown Venipuncture / Unknown 05/26/2023 2:10 PM FOREST FIRE SPECIALIST SUPERVISOR 05/26/2023 2:10 PM FOREST FIRE SPECIALIST SUPERVISOR Brooke James CNM SEND OUTS Performing Organization Address City/[facility]/ZIP Co de Phone Number [facility] [address] [place] [address], * ANTI HIV 1/2 (05/26/2023 2:10 PM FOREST FIRE SPECIALIST SUPERVISOR) HIV-1/HIV-2 SCREEN Non-Reacti ve Non-Reacti ve 05/26/2023 11:04 PM FOREST FIRE SPECIALIST SUPERVISOR [facility] Comment:HIV-1 p24 and HIV-1/ HIV-2 Ab Not Detected. Blood BLOOD SPECIMEN / Unknown Venipuncture / Unknown 05/26/2023 2:10 PM FOREST FIRE SPECIALIST SUPERVISOR 05/26/2023 2:10 PM FOREST FIRE SPECIALIST SUPERVISOR Brooke James CNM SEND OUTS Performing Organization Address City/[facility] Co de Phone Number [facility] [address] [place] [address], * HPV HIGH RISK (02/14/2023 10:55 AM CDT) TYPE 16 Negative Negative 02/20/2023 11:10 AM CDT [facility] TYPE 18 Negative Negative 02/20/2023 11:10 AM CDT [facility] OTHER HIGH RISK TYPES Negative Negative 02/20/2023 11:10 AM CDT [facility] Other (Cervical) Non-Blood / Unknown 02/14/2023 10:55 AM CDT 02/18/2023 7:07 AM CDT Narrative [facility] - 02/20/2023 11:10 AM CDT HPV types 16, 18, 31, 33, 35, 39, 45, 51, 52, 56, 58, 59, 66 and 68 DNA were undetectable or below the pre-set threshold. Methodology: Jimmy Annmarie 4800 HPV Test Nicky KENYON MICROBIOLOGY [facility] [address] [place] [address], from Last 3 Months or Most Recently [...] 1:38 PM 06/19/2017 1:47 PM Care Teams Resin Painter Relationship Specialty Start Date End Date Ramon Bedolla ESTATE PLANNING ATTORNEY [address] [place] [address] PCP - General Nurse Practitioner 04/27/18 Lisa Macias CNM [address] [place] [address] Referring Provider Certified Nurse Cost Analyst 06/30/23
--- NOTE | 2023-12-31 07:15 | CRLHL7_ITS ---
For Patients: As a result of the Century Cures Act, medical imaging exams and procedure reports are released immediately into your electronic medical record. You may view this report before your referring provider. If you have questions, please contact your health care provider. INDICATION: Post dates COMPARISON: none TECHNIQUE: Real time shah scale imaging of the fetus was performed. Without non-stress testing. FINDINGS: Sonographic imaging demonstrates a single living intrauterine gestation. Fetus demonstrates a regular cardiac rate of 163 beats per minute. Fetus has a vertex position. The amniotic fluid volume appears normal and there is a single deepest pocket measurement of 5.0 cm. The fetus was active and demonstrated normal breathing movements. There was normal flexion and extension of the trunk and extremities. IMPRESSION: Normal biophysical profile score of 8 out of 8. Dictated by Jaren Cerna MD @ 12/31/2023 9:56:25 AM (Electronically Signed)
== END 2023-12-31 07:00 | disposition home or self-care (01) ==
LOC: US 06:59
PROVIDERS: Visit Provider Advanced Practice Midwife
DX: O48.0 Post-term pregnancy (principal)
CPT/HCPCS: 76819

== ENCOUNTER 2024-01-04 15:40 | Outpatient (CLI) | payer BC, SELFPAY ==
[2024-01-04 15:43] VITALS: BP 135/77; PULSE 81
--- OUTSIDE RECORDS SUMMARY | 2024-01-04 15:43 | XMS_ITS | Clinical Summary ---
Author Organization [facility] Address [place], [place] [address] Care Team Providers Care Paint Factory Worker Name Role Phone Ramon Bedolla NP Primary Care Provider [phone] Lisa Macias CNAustin Unavailable [phone] Allergies Active Allergy Reactions Criticality Noted Date [...] daily. To rash on back 06/16/2023 Active Iwcsleau-Bi-Lpp-Fe- FA tab tabletIndications:H igh-risk in first trimester [...] 08/05/2023 Low-lying placenta in second trimester 4 [facility] Supervision of high-risk 4 Overview: Napoleon Munoz : 1990 [facility] ULTRASOUND/TESTING PATIENT Support person name: Solo ULTRASOUND TYPE: 09/30/23 Growth US, TVS for low lying placenta REASON FOR VISIT: BMI > 30 NEXT VISIT ALERTS: Final MICHELE by LMP LMP Date: Patient's last menstrual period was 03/20/2023 (exact date). MICHELE: 12/25/23 Early US: Date: 05/26/23 GA: 9w4d MICHEEL: 12/25/23 PrePregnancy Weight: 189 Height: 5'5.75 BMI: 30.7 PLANS & FUTURE APPOINTMENTS: ULTRASOUND/GROWTH PLAN: - Through: - Growth: Next TESTING PLAN: - Testing: Through DELIVERY PLAN: - Scheduled delivery: - Preferred delivery location: PRIMARY DIAGNOSIS: 33 y.o. 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 Plan: colposcopy Cauda equina syndrome 06/19/20172020 Immunizations Name Administration Dates Next Due DTaP [...] Estimated Date of Delivery 05/26/2023 - Present (01/04/2024) 1 12/25/2023 (set by Kika Tate on 05/26/2023 based on Alternate MICHELE Entry) Dating Summary Based On MICHELE GA Diff Last Menstrual Period on 03/20/2023 (Exact Date) 12/25/2023 Same Alternate MICHELE Entry 12/25/2023 Working Vitals Pregravid Weight Height TWG (As of 01/04/2024) Pregrav id BMI 85.7 kg (189 lb) [...] 09/30/2023 - 27w5d - Pete Lancaster MBBS [facility] Ultrasound Visit Your patient had an ultrasound with [facility] on 09/30/2023. The report is ready and can be found in the Results review section of the [facility]. Recommendations regarding further care are [...] -No follow up ultrasounds were scheduled with [facility]. COMMENT: The patient was seen by [...] as needed. Medical Decision Making: Low Complexity 15390 Limited Diagnoses including with suspected placenta previa. Limited Data including review of prior ultrasound and review of prior external notes. Minimal risk of morbidity or mortality to the fetus from additional testing. Services Provided: Procedures Code FOLLOW UP GROWTH 71565.0 TRANSVAGINAL ULTRASOUND 68690.0 Progress Notes - OB Encounte r - 08/18/2023 - GA:21w4d 08/18/2023 - - Jasmina Mari CNM 33 y.o. with [...] pt to register for childbirth classes. 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 Teaching: FM, PTL risks & symptoms, OB warning signs, when/how to call. Orders Placed This Encounter GLUCOSE,GESTATIONAL CBC W PLT NO DIFF TREPONEMA PALLIDUM Jasmina Mari CNM .................... 08/18/2023 4:06 PM Progress Notes - Hospital En counter - 08/05/2023 - GA:19w5d 08/05/2023 - d - Clover Kimball MD MPP Ultrasound 08/05/23 Your patient had an ultrasound with [facility] on 08/05/23 The report is ready and can be found in the Results review section of the [facility] chart. The Impression from the report [...] -The patient was directed to schedule with [facility] as discussed at their visit today. -Patient directed to schedule at the medical front desk coordinator on the way out, or to call [...] as needed. Medical Decision Making: Moderate Level 70506 Moderate number/complexity of problems including an undiagnosed new problem with uncertain prognosis (low lying placenta) Moderate amount and/or complexity of Data reviewed and analyzed including review of prior ultrasound, ordering another ultrasound, and review of prior external notes Low risk of morbidity or mortality from amniocentesis which was considered and declined. Services Provided: Procedures Code DETAIL ANATOMY 09953.0 Progress Notes - OB Encounte r - 06/30/2023 - GA:14w4d 06/30/2023 - w4d - Lisa Díaz CNM Estimated Date of [...] screening should be considered if BMI >25 (-Citizen Of [place] w/ BMI >23) and any of the following criteria are met: Physical inactivity (sedentary lifestyle) First-degree relative with diabetes (type not specified) High-risk race/ethnicity (, , , Citizen Of [place], ) History of macrosomic (>4,000 g or [...] Anatomy ultrasound ordered: yes Level II at [facility] Reviewed AVS with patient and has no other questions. Lisa Macias APRN CNM 06/30/2023 11:15 AM MARTHA charting has been reviewed and approved for this patient? s record. Jasmina Mari CNM .................... 06/30/2023 2:02 PM ER CUTTER Progress Notes - OB Encounte r - 05/26/2023 - GA:9w4d 05/26/2023 - 9w4d - Anam James CNM Images from the original note were not included. FIRST OBSTETRICAL EXAM - MARTHA HPI: Dora Munoz is a 33 y.o. female, , here today to establish care with the [facility]. Previous [facility] patient yes. Gestational Age: Unknown LMP: Patient's [...] needed for Sleep., Disp: , Rfl: 0 Wawjqvrd-Pe-Rqh-Fe-FA tab tablet, Take 1 Tablet by mouth [...] recurrent loss, DVT/PE, stroke, genetic mutations): no. 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 The Pap test findings appear to be explained by the findings in the current specimens. Case Report (specimen info) Pathology Report Case: [id number] Authorizing Provider: Megha Garcia Collected: 03/31/2018 1125 MD Birgit Ordering Location: [facility] Received: 03/31/2018 1241 Clinic Pathologist: Luiza Fuentes MD Specimens: A) - Cervix, 3 oclock B) - Cervix, 7 oclock C) - Endocervical Curettings Pathology Report Case: [id number] Authorizing Provider: Ángela Bunch MD Collected: 04/28/2018 1149 Ordering Location: [facility] Received: 04/28/2018 1227 Pathologist: Scout Hartley MD Specimen: Cervical Cone / LEEP, cervical cone LEEP, stitch at 12:00 Gynecologic Cytology Report Case: [id number] Authorizing Provider: Ramon Bedolla NP Collected: 07/26/2019 1410 Ordering Location: [facility] Received: 07/26/2019 1459 Clinic First Screen: Shyanne Gastelum Rescreen: Denae Lozano MD Specimen: SHREDDED FILLER CUTTER OPERATOR ThinPrep Vial Screening, Cervical Gynecologic Cytology Report Case: [id number] Authorizing Provider: Ramon Bedolla NP Collected: 08/16/2020 0917 Ordering Location: [facility] Received: 08/16/2020 1013 Clinic First Screen: Baccam, Minie Specimen: SHREDDED FILLER CUTTER OPERATOR ThinPrep Vial Screening, Cervical Gynecologic Cytology Report Case: [id number] Authorizing Provider: Ramon Bedolla NP Collected: 02/20/2022 1015 Ordering Location: [facility] Received: 02/20/2022 1041 Clinic First Screen: Baccam, Minie Rescreen: Tammy Freedman Specimen: SHREDDED FILLER CUTTER OPERATOR ThinPrep Vial Screening, Cervical Gynecologic Cytology Report Case: [id number] Authorizing Provider: Nicky Crum CNM Collected: 02/14/2023 1055 Ordering Location: [facility] Received: 02/14/2023 1055 Clinic First Screen: Baccam, Minie Specimen: SHREDDED FILLER CUTTER OPERATOR ThinPrep Vial Screening, Cervical Clinical info LGSIL YUE III 03/10/18 LSIL 03/31/18 COLP:YUE 2-3 04/28/18 LEEP:YUE 3, clear margins 07/26/19 NIL/HPV negative 08/16/20 NIL/HPV+ 09/14/20 [place]: Negative 02/20/22 NIL/HPV Negative 02/14/23 NIL/HPV Negative [...] Narrative Marital Status: , name: Napoleon, 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 [...] Access to food yes, referral to social media content specialist no Safety Guns: No, locked Screening [...] screening should be considered if BMI >25 (-Citizen Of [place] w/ BMI >23) and any of the following criteria are met: -Physical inactivity -First-degree relative with diabetes -Racial/ethnic risk (, , , -Citizen Of [place], ) -History of weight >4 kg (~9 lbs) -History of GDM -PCOS -A1c >5.7%, impaired glucose tolerance, or impaired fasting glucose on prior testing -Clinical conditions associated w/ insulin resistance (pre-gravid BMI >40, acanthosis nigricans) -History of cardiovascular disease USP recommendations for low-dose ASA reviewed - identified [...] & care coordination. Brooke James CNM DNP, CHILD GUIDANCE COUNSELOR, CNM.................... [facility] Added to tracks ER CUTTER Last Filed Vital Signs Vital Sign Reading Time Taken Comments Blood Pressure 120/74 08/18/2023 3:58 PM CDT Pulse 90 08/18/2023 3:58 PM CDT Temperature 36.8 ??C (98.3 ??F) 06/11/2022 3:44 PM CS T Respiratory Rate 16 04/15/2022 7:23 PM ZIPPER CUTTER Oxygen Saturation 98% 06/11/2022 3:44 PM ZIPPER CUTTER Inhaled Oxygen Concentration - - Weight 92.5 kg (204 lb) 08/18/2023 3:58 PM CDT Height 167 cm (5' 5.75) 06/16/2023 2:51 PM ZIPPER CUTTER Body Mass Index 33.18 06/16/2023 2:51 PM ZIPPER CUTTER Plan of Treatment Health Maintenance Due Date Last Done Comments COVID-19 vaccine series (2022-24 season) 2023 Influenza for age 9-49 01/18/2024 [...] Procedure Name Priority Date/Time Associated Diagnosis Comments ANTI HIV 1/2 Routine 05/26/2023 2:10 PM ZIPPER CUTTER High-risk in first trimester ANTI HCV Routine 05/26/2023 2:10 PM ZIPPER CUTTER High-risk in first trimester HPV THIN PREP Routine 02/14/2023 10:55 AM CDT Screening for cervical cancer from Last 3 Months or Most Recently Relevant to Health Maintenance Results * ANTI HCV (05/26/2023 2:10 PM ZIPPER CUTTER) HEPATITIS C ANTIBODY Non-Reacti ve Non-React brianna 05/26/2023 11:21 PM ZIPPER CUTTER [facility] Comment:Please note, per www .CDC.gov: If a patient is known to be at high risk of HCV infection, or is symptomatic, and the physician's suspicion of HCV infection is high, HCV RNA testing is often employed and is of diagnostic value, even after an initial negative anti-HCV test result. Blood BLOOD SPECIMEN / Unknown Venipuncture / Unknown 05/26/2023 2:10 PM ZIPPER CUTTER 05/26/2023 2:10 PM ZIPPER CUTTER Brooke James CNM SEND OUTS Performing Organization Address City/[facility] Co de Phone Number [facility] [address] [place] [address], * ANTI HIV 1/2 (05/26/2023 2:10 PM ZIPPER CUTTER) HIV-1/HIV-2 SCREEN Non-Reacti ve Non-Reacti ve 05/26/2023 11:04 PM ZIPPER CUTTER [facility] Comment:HIV-1 p24 and HIV-1/ HIV-2 Ab Not Detected. Blood BLOOD SPECIMEN / Unknown Venipuncture / Unknown 05/26/2023 2:10 PM ZIPPER CUTTER 05/26/2023 2:10 PM ZIPPER CUTTER Brooke James CNM SEND OUTS Performing Organization Address [facility] Co de Phone Number [facility] [address] [place] [address], * HPV HIGH RISK (02/14/2023 10:55 AM CDT) TYPE 16 Negative Negative 02/20/2023 11:10 AM CDT [facility] TYPE 18 Negative Negative 02/20/2023 11:10 AM CDT [facility] OTHER HIGH RISK TYPES Negative Negative 02/20/2023 11:10 AM CDT [facility] Other (Cervical) Non-Blood / Unknown 02/14/2023 10:55 AM CDT 02/18/2023 7:07 AM CDT Narrative [facility] - 02/20/2023 11:10 AM CDT HPV types 16, 18, 31, 33, 35, 39, 45, 51, 52, 56, 58, 59, 66 and 68 DNA were undetectable or below the pre-set threshold. Methodology: Jimmy Annmarie 4800 HPV Test Nicky Alda Crum [facility] MICROBIOLOG[facility] [address] [place] [address], from Last 3 Months or Most Recently [...] 1:38 PM 06/19/2017 1:47 PM Care Teams Paint Factory Worker Relationship Specialty Start Date End Date Ramon Bedolla CHAIR SPRING ASSEMBLER [address] [place] [address] PCP - General Nurse Practitioner 04/27/18 Lisa Macias CNM [address] [place] [address] Referring Provider Certified Nurse Oil Pipe Inspector Helper 06/30/23
[2024-01-04 16:15] VITALS: TEMP 36.7
--- NOTE | 2024-01-04 17:01 | PC.OBNST ---
NST Note NST Note Start: 01/04/24 15:47 Freq: ONCE Status: Active Protocol: Document 01/04/24 17:00 [facility] (Rec: 01/04/24 17:01 [facility] [id number]) NST Note 4 Para (# of births) 0 EDC 12/25/23 Gestational Age In Weeks & Days 41 Weeks & 3 Days Patient Presented with Complaint(s) of Contractions/cramping,Vaginal bleeding,Decreased movement Reactive Yes Appropriate for Gestational Age Yes RN Jose G Chicas RN Date 01/04/24 Reactive Yes Appropriate for Gestational Age Yes JOSE Kim RN Date 01/04/24 OB NST charge Yes Complete NST Note via Write Note Yes The provider's electronic signature indicates the NST is reactive/appropriate for gestational age. *Note to provider: If an addendum is required, open the patient's chart and click on the note under the Nurse/Allied Health tab.
== END 2024-01-04 17:00 | disposition home or self-care (01) ==
LOC: OB OUT 15:41 → OB 15:42
PROVIDERS: Visit Provider Advanced Practice Midwife
DX: O47.1 False labor at or after 37 completed weeks of gestation (principal); Z3A.41 41 weeks gestation of pregnancy
CPT/HCPCS: 59025; G0463

== ENCOUNTER 2024-01-04 23:47 | Inpatient (IN) | payer BC, SELFPAY ==
--- OUTSIDE RECORDS SUMMARY | 2024-01-04 23:26 | XMS_ITS | Clinical Summary ---
Author Organization [employer] [facility] Address [place], [place] [address] Care Team Providers Care Chief Investigator Name Role Phone Ramon Bedolla NP Primary Care Provider [phone] Lisa Macias CNAustin Unavailable [phone] Allergies Active Allergy Reactions Criticality Noted Date [...] daily. To rash on back 06/16/2023 Active Kccsdxrm-Gu-Lai-Fe- FA tab tabletIndications:H igh-risk in first trimester [...] 08/05/2023 Low-lying placenta in second trimester 4 [facility] Supervision of high-risk 4 Overview: Napoleon Munoz : 1990 [facility] ULTRASOUND/TESTING PATIENT Support person name: Solo ULTRASOUND [...] 2, IAB x 1 PREVIOUS ULTRASOUNDS: 08/05/23 ([facility] L2@19w5d) EFW 314 grams, percentile: 50, low [...] from internal os on level II ultrasound ~[facility] recommends follow up ultrasound at 28-32 weeks [...] margins 07/26/19 NIL/HPV negative 08/16/20 NIL/HPV+ 09/14/20 [place]: Negative 02/20/22 NIL/HPV Negative 02/14/23 NIL/HPV Negative [...] 09/30/2023 - GA:27w5d 09/30/2023 - 27w5d - P[place] [employer] [facility] Ultrasound Visit Your patient had an ultrasound with [facility] on 09/30/2023. The report is ready and can be found in the [facility]. Recommendations regarding further care are [...] -No follow up ultrasounds were scheduled with [facility]. COMMENT: The patient was seen by the [...] as needed. Medical Decision Making: Low Complexity 92584 Limited Diagnoses including with suspected placenta previa. Limited Data including review of prior ultrasound and review of prior external notes. Minimal risk of morbidity or mortality to the fetus from additional testing. Services Provided: Procedures Code FOLLOW UP GROWTH 30949.0 TRANSVAGINAL ULTRASOUND 12649.0 Progress Notes - OB Encounte r - [...] pt to register for childbirth classes. 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 [...] 08/05/23 Your patient had an ultrasound with [facility] on 08/05/23 The report is ready and can be found in the Results [facility]. The Impression from the report [...] -The patient was directed to schedule with [facility] as discussed at their visit today. -Patient [...] as needed. Medical Decision Making: Moderate Level 46825 Moderate number/complexity of problems including an undiagnosed new problem with uncertain prognosis (low lying placenta) Moderate amount and/or complexity of Data reviewed and analyzed including review of prior ultrasound, ordering another ultrasound, and review of prior external notes Low risk of morbidity or mortality from amniocentesis which was considered and declined. Services Provided: Procedures Code DETAIL ANATOMY 52044.0 Progress Notes - OB Encounte r - [...] screening should be considered if BMI >25 (-Monegasque w/ BMI >23) and any of the following criteria are met: Physical inactivity (sedentary lifestyle) First-degree relative with diabetes (type not specified) High-risk race/ethnicity (, , , Monegasque, ) History of macrosomic (>4,000 g or [...] Anatomy ultrasound ordered: yes Level II at [facility] Reviewed AVS with patient and has no other questions. Lisa Macias APRN CNM 06/30/2023 11:15 AM MARTHA charting has been reviewed and approved for this patient? s record. Jasmina Mari CNM .................... 06/30/2023 2:02 PM INCT POLICE SERGEANT Progress Notes - OB Encounte r - [...] Dietary restrictions: No Maternal ethnicity: /White, Language: Faroese. Partner ethnicity: /White, Language: Faroese. ALLERGIES Allergies Allergen Reactions Amoxicillin Rash Tolerates [...] needed for Sleep., Disp: , Rfl: 0 Nxnrinhz-Qg-Phc-Fe-FA tab tablet, Take 1 Tablet by mouth [...] recurrent loss, DVT/PE, stroke, genetic mutations): no. RADIATION SAFETY OFFICER HISTORY Latest Ref Rng & Units 03/31/2018 [...] Path Comment (Beaker) This patient's Pap test [id number] (LSIL) is reviewed. The Pap test findings appear to be explained by the findings in the current specimens. Case Report (specimen info) Pathology Report Case: [id number] Authorizing Provider: Megha Garcia Collected: 03/31/2018 1125 MD Birgit Ordering Location: [facility] Received: 03/31/2018 1241 Clinic Pathologist: Luiza Fuentes MD Specimens: A) - Cervix, 3 oclock B) - Cervix, 7 oclock C) - Endocervical Curettings Pathology Report [id number]: [id number] Authorizing Provider: Ángela Bunch MD Collected: 04/28/2018 1149 Ordering Location: [facility] Received: 04/28/2018 1227 Pathologist: Scout Hartley MD Specimen: Cervical Cone / LEEP, cervical cone LEEP, stitch at 12:00 Gynecologic Cytology Report Case: [id number] Authorizing Provider: Ramon Bedolla NP Collected: 07/26/2019 1410 Ordering Location: [facility] Received: 07/26/2019 1459 Clinic First Screen: Shyanne Gastelum Rescreen: Denae Lozano MD Specimen: RADIATION SAFETY OFFICER ThinPrep Vial Screening, Cervical Gynecologic Cytology Report Case: [id number] Authorizing Provider: Ramon Bedolla NP Collected: 08/16/2020 0917 Ordering Location: [facility] Received: 08/16/2020 1013 Clinic First Screen: Baccam, Minie Specimen: RADIATION SAFETY OFFICER ThinPrep Vial Screening, Cervical Gynecologic Cytology Report Case: [id number] Authorizing Provider: Ramon Bedolla NP Collected: 02/20/2022 1015 Ordering Location: [facility] Received: 02/20/2022 1041 Clinic First Screen: Baccam, Minie Rescreen: Tammy Freedman Specimen: RADIATION SAFETY OFFICER ThinPrep Vial Screening, Cervical Gynecologic Cytology Report Case: [id number] Authorizing Provider: Nicky Crum CNM Collected: 02/14/2023 1055 Ordering Location: [facility] Received: 02/14/2023 1055 Clinic First Screen: Baccam, Minie Specimen: RADIATION SAFETY OFFICER ThinPrep Vial Screening, Cervical Clinical info LGSIL YUE III 03/10/18 LSIL 03/31/18 COLP:YUE 2-3 04/28/18 LEEP:YUE 3, clear margins 07/26/19 NIL/HPV negative 08/16/20 NIL/HPV+ 09/14/20 [place]: Negative 02/20/22 NIL/HPV Negative 02/14/23 NIL/HPV Negative [...] Narrative Marital Status: , name: Napoleon, 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 Brooke James CNM DNP, PIT INSPECTOR, CNM.................... [facility] Added to tracks INCT POLICE SERGEANT Last Filed Vital Signs Vital Sign Reading Time Taken Comments Blood Pressure 120/74 08/18/2023 3:58 PM CDT Pulse 90 08/18/2023 3:58 PM CDT Temperature 36.8 ??C (98.3 ??F) 06/11/2022 3:44 PM CS T Respiratory Rate 16 04/15/2022 7:23 PM PRECINCT POLICE SERGEANT Oxygen Saturation 98% 06/11/2022 3:44 PM PRECINCT POLICE SERGEANT Inhaled Oxygen Concentration - - Weight 92.5 kg (204 lb) 08/18/2023 3:58 PM CDT Height 167 cm (5' 5.75) 06/16/2023 2:51 PM PRECINCT POLICE SERGEANT Body Mass Index 33.18 06/16/2023 2:51 PM PRECINCT POLICE SERGEANT Plan of Treatment Health Maintenance Due Date [...] ANTI HIV 1/2 Routine 05/26/2023 2:10 PM PRECINCT POLICE SERGEANT High-risk in first trimester ANTI HCV Routine 05/26/2023 2:10 PM PRECINCT POLICE SERGEANT High-risk in first trimester HPV THIN PREP Routine 02/14/2023 10:55 AM CDT Screening for cervical cancer from Last 3 Months or Most Recently Relevant to Health Maintenance Results * ANTI HCV (05/26/2023 2:10 PM PRECINCT POLICE SERGEANT) HEPATITIS C ANTIBODY Non-Reacti ve Non-React brianna 05/26/2023 11:21 PM PRECINCT POLICE SERGEANT [facility] Comment:Please note, per [...] Unknown Venipuncture / Unknown 05/26/2023 2:10 PM PRECINCT POLICE SERGEANT 05/26/2023 2:10 PM PRECINCT POLICE SERGEANT Brooke James CNM SEND OUTS Performing Organization Address [facility] Co de Phone Number [facility] [address] [place] [address], * ANTI HIV 1/2 (05/26/2023 2:10 PM PRECINCT POLICE SERGEANT) HIV-1/HIV-2 SCREEN Non-Reacti ve Non-Reacti ve 05/26/2023 11:04 PM PRECINCT POLICE SERGEANT [facility] Comment:HIV-1 p24 and HIV-1/ HIV-2 Ab Not Detected. Blood BLOOD SPECIMEN / Unknown Venipuncture / Unknown 05/26/2023 2:10 PM PRECINCT POLICE SERGEANT 05/26/2023 2:10 PM PRECINCT POLICE SERGEANT Brooke James CNM SEND OUTS Performing Organization Address [facility] Co de Phone Number [facility] [address] [place] [address], * HPV HIGH RISK (02/14/2023 10:55 AM CDT) TYPE 16 Negative Negative 02/20/2023 11:10 AM CDT [facility] TYPE 18 Negative Negative 02/20/2023 11:10 AM CDT [facility] OTHER HIGH RISK TYPES Negative Negative 02/20/2023 11:10 AM CDT [facility] Other (Cervical) Non-Blood / Unknown 02/14/2023 10:55 AM CDT 02/18/2023 7:07 AM CDT Narrative [facility] - 02/20/2023 11:10 AM CDT HPV types 16, 18, 31, 33, 35, 39, 45, 51, 52, 56, 58, 59, 66 and 68 DNA were undetectable or below the pre-set threshold. Methodology: Jimmy Annmarie 4800 HPV Test Nicky Alda Crum [facility] [address] [place] [address], from Last 3 Months or Most Recently [...] 1:38 PM 06/19/2017 1:47 PM Care Teams Chief Investigator Relationship Specialty Start Date End Date aRmon Bedolla IMPREGNATING HELPER [address] [place] [address] PCP - General Nurse Practitioner 04/27/18 Lisa Macias CNM [address] [place] [address] Referring Provider Certified Nurse Sqe 06/30/23
[2024-01-04 23:50] VITALS: BP 130/75; PULSE 70; RESP 17; TEMP 36.8
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
[2024-01-04 23:59] VITALS: BMI 36.5
[2024-01-05] VITALS (13 sets, daily range): BP systolic 100–126; BP diastolic 62–80; PULSE 84–116; RESP 16–18; TEMP 36.4–37.3; O2SAT 97
[2024-01-05] MEDS: OXYTOCIN 10 UNIT/ML INJ IM (02:03)
--- NOTE | 2024-01-05 03:08 | W.PM.OBVAGDE ---
OB Procedure Vag Delivery Mother Details Mother Details: The patient is a 33 year-old, 4, now Para 1, admitted on 01/05/24 at 41.3 gestation. : 4 Para: 1 Weeks Gestation: 41.4 Admission Date: 01/04/24 Additional Details Amniotic Membrane Status: SROM Amniotic Membrane Rupture Date: 01/04/24 Amniotic Membrane Rupture Time: 23:48 Amniotic Membrane Fluid Description: Clear Analgesia/Anesthesia Type: None and Nitrous Oxide (For repair) Waterbirth: Yes Pitcoin: Yes ([facility] only) Labor Onset: 17:30 Complete: 00:54 Pushin:54 Heart: heart tones during second stage were intermittently auscultated and were reassuring throughout. Delivery Details Delivery Date: 01/05/24 Delivery Time: 01:42 Route of delivery: Gender: Female Viability: Alive; Heart Rate Present Delivery Details: Patient was admitted for spontaneous onset of labor and progressed normally. She was 9.5 cm on arrival with sutures palpated during exam. SROM occurred just after provider exam with clear fluid at 2348. She then entered the tub for pain management. Patient was assumed complete with pushing at 0054. She pushed well in a semi-reclined position for a period of time then changed positions to kneeling. She reported the pain was intense and perineal counter pressure was done by provider. During this, presenting part was felt but there was concern it was not head. Patient was instructed to reposition to semi-fowlers and consent was given by her to do vaginal exam to confirm position. Face presentation was noted with chin palpated in front of the pubic bone, mentum anterior position. MD was in house and notified to not leave until delivery. Patient was instructed on pushing technique and quickly pushed to . of a viable female at 0142 in semi-fowlers in the tub. Vertex delivered mentum anterior. Nuchal x1 was identified at the perineum and easily reduced. No shoulder. Body delivered easily and without incident. Infant passed to mothers abdomen with a vigorous cry. Cord was clamped and cut at > 5 minutes. APGARS were 8 at one minute and 9 at five minutes respectively. Mouth was bulb suctioned. There was an initial gush of bleeding in the tub, it improved and patient requested to stay in the tub for a longer period. She was then transitioned out of the tub after the cord was clamped. She was assisted to the bed. Intact placenta with a 3 vessel cord delivered spontaneously at 0158 with a large of blood and clots. Fundus firm and bleeding minimal after placenta delivered. IM pitocin recommended and given with patient consent. 2nd degree perineal laceration identified and repaired in typical fashion. Nitrous oxide was used during repair. QBL 100 + EBL 600 (Tub and placenta) cc. Mother and baby stable; mother plans to breastfeed. Infant weight pending. 1 Minute Interval Total Score: 8 5 Minute Interval Total Score: 9 Additional Details Shoulder Dystocia: No Placenta Delivery Time: 01:58 Placental Delivery Description: Spontaneous Delivery repair: Vicryl Procedure Done: Global Blood Loss: 700 Laceration: Perineal - 2nd Degree Blood Loss Measurement Type: QBL (+EBL of tub and placenta container) Bakri Used: No Sponge/Need Count Correct: Yes Cord Vessel Description: 3 Vessels, Nuchal Cord, Loose and Reduced Event Summary Status: Mother and infant were stable after delivery. Disposition: floor
[2024-01-05] MEDS: IBUPROFEN 600 MG TABLET PO ×3 (03:26→19:21)
[2024-01-05] MEDS: LACTATED RINGERS 1000 ML 1,000 ML 1200 ML IV (04:30)
[2024-01-05 04:33] LABS: Hemoglobin* 11.1 gm/dL (12.0-16.0)
[2024-01-05] MEDS: LACTATED RINGERS 1000 ML 1,000 ML 125 ML IV (05:25)
[2024-01-05] MEDS: ACETAMINOPHEN 500 MG TABLET 1000 MG PO ×3 (07:35→21:54)
[2024-01-05] MEDS: DOCUSATE SODIUM 100 MG CAPSULE PO (08:42)
[2024-01-06] MEDS: IBUPROFEN 600 MG TABLET PO ×2 (02:16→08:11)
[2024-01-06 02:24] VITALS: BP 103/71; PULSE 75; RESP 18; TEMP 36.6; O2SAT 96
[2024-01-06] MEDS: ACETAMINOPHEN 500 MG TABLET 1000 MG PO (06:24)
[2024-01-06 06:29] LABS: Hemoglobin* 7.3 gm/dL (12.0-16.0)
--- NOTE | 2024-01-06 06:38 | W.PM.OBVAGDE ---
OB Procedure Vag Delivery Mother Details Mother Details: The patient is a 33 year-old, 4, Para 1, admitted on 01/05/24 at 41.4Days gestation. Additional Details Amniotic Membrane Status: SROM Amniotic Membrane Rupture Date: 01/04/24 Amniotic Membrane Rupture Time: 23:48 Heart: heart tones during second stage were [] Delivery Details Delivery Date: 01/05/24 Delivery Time: 01:42 Infant Gender: Female Infant Viability: Alive; Heart Rate Present Delivery Details: Delivered over [intact perineum] via [spontaneous] vaginal delivery. was placed on maternal abdomen.? Cord was clamped and cut after a 30-60 second delay. Nose and mouth were bulb suctioned.? weight pending. Additional Details Shoulder Dystocia: No Placenta Delivery Time: 01:58 Placental Delivery Description: Spontaneous Blood Loss: 750 Laceration: Perineal - 2nd Degree Blood Loss Measurement Type: EBL Bakri Used: No Sponge/Need Count Correct: Yes Event Summary Status: Mother and were stable after delivery.
--- NOTE | 2024-01-06 06:41 | PM.OBPNVD1 ---
OB - PN:Subj Subjective Date Seen: 01/06/24 Narrative: Called by RN to evaluate due to critical lab result. Hgb 7.3. EBL from yesterday was 700cc. 2nd degree repaired. Pt had an episode of syncope x 1 that resolved after fluid bolus yesterday morning. Bleeding has been scant. Pain is well controlled. She is mobile independently. She states she did pass a clot during the night because she felt it when she got up to the bathroom, but did not see it. Dora states she feels well. OB - PN: Obj Exam Physical Exam: Vital signs: Temp Pulse Resp BP Pulse Ox O2 Del Method 98 F 75 18 103/71 96 Room Air 01/06/24 02:24 01/06/24 02:24 01/06/24 02:24 01/06/24 02:24 01/06/24 02:24 01/06/24 02:24 Narrative: GENERAL APPEARANCE:? normal affect, alert, no distress MOOD:? appropriate ABDOMEN:? soft, non-tender the uterine fundus is 1 cm below Umbilicus, Midline and is appropriate for the stage of recovery. EXTREMITIES:? normal and edema minimal OB - PN: Obj Data Labs Labs: Laboratory Results - last 24 hr 01/06/24 06:08 Hgb 7.3 L* OB - PN: A/P Delivery Assessment and Plan (1) care and examination: Status: Acute Assessment and Plan: A: Critically low hgb not consistent clinical picture P: Reflex to full CBC Pt to have RN in room when up again next for bleeding observation and safety Continued assessment for consideration of intervention. Pt and partner agree with plan. Melody Schofield CNM updated with plan. (2) Lactating mother: Status: Acute (3) Mild asthma: Status: Acute
[2024-01-06 06:47] LABS: Basophils Percent Auto 0.3 % (0.0-3.0); Eosinophils Percent Auto 2.1 % (0.0-7.0); Hematocrit 22.1 % (33.0-51.0); Immature Granulocytes Pct Auto 0.5 %; Lymphocytes Percent Auto 26.3 % (20-44); Mean Corpuscular HGB Conc 33 gm/dL (32-36); Mean Corpuscular Hemoglobin 31 pg (26-34); Mean Corpuscular Volume 94 fL (80-100); Monocytes Percent Auto 7.2 % (0.0-11.0); Neutrophils Percent Auto 63.6 % (42.0-72.0); Platelet Count* 249 K/uL (140-440); RDW Coefficient of Variation % 13.5 % (11.5-15.5); Red Blood Count 2.35 m/uL (4.00-5.20); White Blood Count* 13.68 K/uL (4.50-11.00)
[2024-01-06 06:48] LABS: Slide Review Reflex No
--- NOTE | 2024-01-06 08:01 | P.OBPN_ITS ---
OB - PN:Subj Subjective Date Seen: 01/06/24 Patient comments OB post-: no complaints Narrative: Dora is a 33 y.o. who was admitted to [facility] for labor.? She had an uncomplicated NVD.? ?? The patient feels well.? The pain is well controlled with current medications.? She has no new complaints.? She is breast feeding and reports things are going well.? the patient has done well.? Vitals have been stable.? She has remained afebrile.? Has a good appetite, is tolerating a general diet.? She is voiding without difficulty.? She is passing gas and has not had a bowel movement.? She is ambulating and denies any dizziness.? Has Small amount of r ubra lochia.?She would like to discharge today but her hemoglobin this morning had a significant drop. She is asymptomatic with this at this time. Plan to recheck hemoglobin at noon and reevaluate patient status at that time. OB - PN: Obj Exam Physical Exam: Vital signs: Temp Pulse Resp BP Pulse Ox O2 Del Method 98 F 75 18 103/71 96 Room Air 01/06/24 02:24 01/06/24 02:24 01/06/24 02:24 01/06/24 02:24 01/06/24 02:24 01/06/24 02:24 Narrative: GENERAL APPEARANCE:? normal affect, alert, no distress? MOOD:? appropriate? HEENT: normocephalic, neck supple, full ROM? CHEST:? Symmetrical chest wall movement.? Normal respiratory effort.? Clear to auscultation ? HEART:? regular rate and rhythm? ABDOMEN:? soft, non-tender. Uterine fundus is firm, U/1 Umbilicus, Midline and is appropriate for the stage of recovery.? Bowel sounds present.? PERINEUM:? mild edema of the perineum, there is a 2nd degree laceration that is healing well.? EXTREMITIES:? normal and no edema? OB - PN: Obj Data Labs Labs: Laboratory Results - last 24 hr 01/06/24 06:08 WBC 13.68 H RBC 2.35 L Hgb 7.3 L* Hct 22.1 L MCV 94 MCH 31 MCHC 33 RDW Coeff of Jayce 13.5 Plt Count 249 Neut % (Auto) 63.6 Lymph % (Auto) 26.3 [place] % (Auto) 7.2 Eos % (Auto) 2.1 Baso % (Auto) 0.3 Neut # (Auto) 8.70 H Lymph # (Auto) 3.60 H [place] # (Auto) 1.00 H Eos # (Auto) 0.30 Baso # (Auto) 0.00 Abs Immat Gran (auto) 0.10 Imm/Tot Granulo (auto) 0.5 OB - PN: A/P Delivery Assessment and Plan (1) care and examination: Status: Acute (2) Lactating mother: Status: Acute (3) Mild asthma: Status: Acute Plan day: 1 Plan: routine care Comments: G 4 P 1 status post uncomplicated NVD??? 1.? Continue route PP cares? 2.? .? May see if desired? 3.? Anticipate discharge home tomorrow?or later today dependent on lab results and patient status
[2024-01-06 08:05] VITALS: BP 104/71; PULSE 81; RESP 16; TEMP 36.9; O2SAT 97
[2024-01-06] MEDS: DOCUSATE SODIUM 100 MG CAPSULE PO (08:11)
[2024-01-06 12:23] LABS: Hemoglobin* 7.8 gm/dL (12.0-16.0)
--- NOTE | 2024-01-06 12:52 | P.DS_ITS ---
DS: Providers Provider Date Seen: 01/06/24 Date of admission: 01/05/24 00:09 Primary care physician: Not a Local Provider Admitting Clinician: Farideh Melissa CNM Attending Physician on discharge: Farideh Melissa CNM Date of Discharge: 01/06/24 DS: Diagnosis Discharge Diagnosis (1) care and examination: Status: Acute (2) Lactating mother: Status: Acute (3) Anemia: Status: Acute Exam Narrative: Exam Narrative: see previous exam for this date. Const: Vital Signs, click to edit/add: Vital Signs - 24 hr 01/05/24 16:05 01/05/24 20:27 01/06/24 02:24 Temperature 97.6 F 99.1 F 98 F Pulse Rate [Right Pulse Oximeter] 90 95 75 Respiratory Rate 16 18 18 Blood Pressure [Le ft Arm] 106/74 106/69 103/71 Pulse Oximetry 97 97 96 Oxygen Delivery Me thod Room Air Room Air Room Air 01/06/24 08:05 Temperature 98.4 F Pulse Rate [Right Pulse Oximeter] 81 Respiratory Rate 16 Blood Pressure [Le ft Arm] 104/71 Pulse Oximetry 97 Oxygen Delivery Me thod Room Air Documenting provider has reviewed patient's vital signs: yes OB - DS: Summary Hospital Course Hospital Course: See previous note. Dora's repeat hemoglobin is 7.8, she was offered a blood transfusion, IV iron or oral iron for treatment. She prefers to take oral iron. Denies any lightheadedness or shortness of breath when up. Was standing in room holding baby while going over discharge instructions without issue. She desires discharge today. Peripartum Data delivery method: Vaginal Laceration description: Perineal - 2nd Degree [place] Infant Gender: Female Discharge Plan: Home Status at Discharge Functional status at discharge: independent ambulation Overall status at discharge: patient is progressing back to baseline Time Spent with Patient Time attestation: Total time spent providing and/or coordinating discharge services: Time spent: Less than 30 minutes Discharge Plan Discharge Disposition: Home, Self-Care Date of Admission: 01/05/24 00:09 Attending Provider on Discharge: Melody Schofield Primary Care Provider: Provider,Not a Local Condition: Stable Anticipated Discharge Date/Time: 01/06/24 14:00 Discharge Medications: New acetaminophen 500 mg Tablet 1,000 mg PO Q6H PRNQty: 0 0RF docusate sodium 100 mg Capsule 100 mg PO DAILY Qty: 90 2RF ibuprofen 600 mg Tablet 600 mg PO Q6H PRNQty: 60 0RF ferrous sulfate 324 mg (65 mg iron) tablet,delayed release (DR/EC) 324 mg PO Q OTHER DAY Qty: 30 2RF ascorbate calcium (vitamin C) 500 mg tablet 500 mg PO DAILY Qty: 30 2RF Continued clotrimazole [Antifungal (clotrimazole)] 1 % cream 1 applic topical BID PRN melatonin 10 mg capsule 10 mg PO ONCE DHA 200 mg capsule 1 mg PO .1 cholecalciferol (vitamin D3) 125 mcg (5,000 unit) capsule 125 mcg PO QDAY magnesium 250 mg tablet 250 mg PO QDAY aspirin [Adult Low Dose Aspirin] 81 mg tablet,delayed release (DR/EC) 81 mg PO QDAY cetirizine [Zyrtec] 10 mg tablet 10 mg PO QDAY PRN fluticasone propionate [Flonase Allergy Relief] 50 mcg/actuation spray,suspension 1 spray intranasal QDAY PRN Rx Instructions: administer into each nostril albuterol sulfate 90 mcg/actuation HFA aerosol inhaler 2 puff inhalation Q6H PRN (DME) breast pump Device See Rx Instructions .Route Qty: 1 0RF Rx Instructions: As directed Discharge Orders: Discharge Order (Routine); Ordered 01/06/24 Ordered By: Melody Schofield Patient Education: OB Over the Counter Medication Information, OB Vaginal/Breast Feeding Additional Instructions: Discharge instructions were reviewed with the patient including signs and symptoms of infection and home going medications Nothing vaginally for 6 weeks: no tampons or intercourse Off Work or School for 6 weeks Symptoms to report to doctor: * Bleeding that saturates more than one pad per hour * Passing clots larger than the size of a golf ball * Pain not relieved by prescribed medication * Fever above 100.4 degrees Fahrenheit * A foul vaginal odor * Difficulty in emotions, mood, and functions * Thoughts of hurting yourself and/or * Painful, reddened area in your breast * Any drainage, redness, or tenderness in your IV/epidural site * Severe headache that doesn't improve after taking medications * Changes in vision, including temporary loss of vision, blurred vision, and/or light sensitivity * Upper abdominal pain (usually under ribs on the right side) * Decrease in urination or painful, frequent urinating * Chest pain * Shortness of breath * Tenderness or pain with redness and/swelling in the calf(s) of your leg 2-week visit: discuss infant feeding concerns, review control options and screen for anxiety/depression. 6-week visit for an annual exam. consultation services are available to all mothers and babies for the first year after delivery.? To make an appointment, please call [phone]. Activity Level: Activity as Tolerated Discharge Diet: Regular Follow Up Appointments: Provider,Not a Local [Primary Care Provider] - [facility] [Provider Group] Forms: ev-social Info Instructions
--- OUTSIDE RECORDS SUMMARY | 2024-01-06 16:04 | XMS_ITS | Clinical Summary ---
Author Organization [facility] Address [place], [place] [address] Care Team Providers Care Aeronautical Drafter Name Role Phone Ramon Bedolla NP Primary Care Provider [phone] Lisa Macias CNAustin Unavailable [phone] Allergies Active Allergy Reactions Criticality Noted Date [...] daily. To rash on back 06/16/2023 Active Oiukfzbe-Qw-Aic-Fe- FA tab tabletIndications:H igh-risk in first trimester [...] 08/05/2023 Low-lying placenta in second trimester 4 [facility] Supervision of high-risk 4 Overview: Napoleon Munoz : 1990 [facility] ULTRASOUND/TESTING PATIENT Support person name: Solo [...] 2, IAB x 1 PREVIOUS ULTRASOUNDS: 08/05/23 ([facility] L2@19w5d) EFW 314 grams, percentile: 50, [...] from internal os on level II ultrasound ~[facility] recommends follow up ultrasound at 28-32 [...] margins 07/26/19 NIL/HPV negative 08/16/20 NIL/HPV+ 09/14/20 [place]: Negative 02/20/22 NIL/HPV Negative 02/14/23 NIL/HPV Negative [...] Estimated Date of Delivery 05/26/2023 - Present (01/06/2024) 1 12/25/2023 (set by Kika Tate on 05/26/2023 based on Alternate MICHELE Entry) Dating Summary Based On MICHELE [place] Diff Last Menstrual Period on 03/20/2023 (Exact Date) 12/25/2023 Same Alternate MICHELE Entry 12/25/2023 Working Vitals Pregravid Weight Height TWG (As of 01/06/2024) Pregrav id BMI 85.7 kg (189 lb) [...] 09/30/2023 - 27w5d - Pete Lancaster MBBS [facility] Ultrasound Visit Your patient had an ultrasound with [facility] on 09/30/2023. The report is ready and can be found in the Results review section of the [facility]. Recommendations regarding further care are [...] -No follow up ultrasounds were scheduled with [facility]. COMMENT: The patient was seen by [...] as needed. Medical Decision Making: Low Complexity 92854 Limited Diagnoses including with suspected placenta previa. Limited Data including review of prior ultrasound and review of prior external notes. Minimal risk of morbidity or mortality to the fetus from additional testing. Services Provided: Procedures Code FOLLOW UP GROWTH 99259.0 TRANSVAGINAL ULTRASOUND 81587.0 Progress Notes - OB Encounte r - [...] pt to register for childbirth classes. Explained patch press operator care for labor support, info in [...] 08/05/23 Your patient had an ultrasound with [facility] on 08/05/23 The report is ready and can be found in the Results review section of the [facility] chart. The Impression from the report [...] -The patient was directed to schedule with [facility] as discussed at their visit today. -Patient directed to schedule at the front elevator operator on the way out, or to call [...] as needed. Medical Decision Making: Moderate Level 92933 Moderate number/complexity of problems including an undiagnosed new problem with uncertain prognosis (low lying placenta) Moderate amount and/or complexity of Data reviewed and analyzed including review of prior ultrasound, ordering another ultrasound, and review of prior external notes Low risk of morbidity or mortality from amniocentesis which was considered and declined. Services Provided: Procedures Code DETAIL ANATOMY 08798.0 Progress Notes - OB Encounte r - [...] screening should be considered if BMI >25 (-Senegalese w/ BMI >23) and any of the following criteria are met: Physical inactivity (sedentary lifestyle) First-degree relative with diabetes (type not specified) High-risk race/ethnicity (, , , [place]e, ) History of macrosomic (>4,000 g or [...] Anatomy ultrasound ordered: yes Level II at [facility] Reviewed AVS with patient and has no other questions. Lisa Macias APRN CNM 06/30/2023 11:15 AM MARTHA charting has been reviewed and approved for this patient? s record. Jasmina Mari CNM .................... 06/30/2023 2:02 PM O GRAPHICS LIBRARIAN Progress Notes - OB Encounte r - [...] Dietary restrictions: No Maternal ethnicity: /White, Language: [place]. Partner ethnicity: /White, Language: [place]. ALLERGIES Allergies Allergen Reactions Amoxicillin Rash Tolerates [...] needed for Sleep., Disp: , Rfl: 0 Pwwuauli-Tm-Ktc-Fe-FA tab tablet, Take 1 Tablet by mouth [...] recurrent loss, DVT/PE, stroke, genetic mutations): no. IRISH MOSS BLEACHER HISTORY Latest Ref Rng & Units 03/31/2018 [...] Path Comment (Beaker) This patient's Pap test [id number] (LSIL) is reviewed. The Pap test findings appear to be explained by the findings in the current specimens. Case Report (specimen info) Pathology Report Case: [id number] Authorizing Provider: Megha Garcia Collected: 03/31/2018 1125 MD Birgit Ordering Location: [facility] Received: 03/31/2018 1241 Clinic Pathologist: Luiza Fuentes MD Specimens: A) - Cervix, 3 oclock B) - Cervix, 7 oclock C) - Endocervical Curettings Pathology Report Case: [id number] Authorizing Provider: Ángela Bunch MD Collected: 04/28/2018 1149 Ordering Location: [facility] Received: 04/28/2018 1227 Pathologist: Scout Hartley MD Specimen: Cervical Cone / LEEP, cervical cone LEEP, stitch at 12:00 Gynecologic Cytology Report Case: [id number] Authorizing Provider: Ramon Bedolla NP Collected: 07/26/2019 1410 Ordering Location: [facility] Received: 07/26/2019 1459 Clinic First Screen: Shyanne Gastelum Rescreen: Denae Lozano MD Specimen: IRISH MOSS BLEACHER ThinPrep Vial Screening, Cervical Gynecologic Cytology Report Case: [id number] Authorizing Provider: Ramon Bedolla NP Collected: 08/16/2020 0917 Ordering Location: [facility] Received: 08/16/2020 1013 Clinic First Screen: Baccam, Minie Specimen: IRISH MOSS BLEACHER ThinPrep Vial Screening, Cervical Gynecologic Cytology Report Case: [id number] Authorizing Provider: Ramon Bedolla NP Collected: 02/20/2022 1015 Ordering Location: [facility] Received: 02/20/2022 1041 Clinic First Screen: Baccam, Minie Rescreen: Tammy Freedman Specimen: IRISH MOSS BLEACHER ThinPrep Vial Screening, Cervical Gynecologic Cytology Report Case: [id number] Authorizing Provider: Nicky Crum CNM Collected: 02/14/2023 1055 Ordering Location: [facility] Received: 02/14/2023 1055 Clinic First Screen: Baccam, Minie Specimen: IRISH MOSS BLEACHER ThinPrep Vial Screening, Cervical Clinical info LGSIL YUE III 03/10/18 LSIL 03/31/18 COLP:YUE 2-3 04/28/18 LEEP:YUE 3, clear margins 07/26/19 NIL/HPV negative 08/16/20 NIL/HPV+ 09/14/20 [place]: Negative 02/20/22 NIL/HPV Negative 02/14/23 NIL/HPV Negative [...] Narrative Marital Status: , name: Napoleon, 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 Brooke James CNM DNP, MANUFACTURING FINANCE MANAGER, CNM.................... [facility] Added to tracks O GRAPHICS LIBRARIAN Last Filed Vital Signs Vital Sign Reading Time Taken Comments Blood Pressure 120/74 08/18/2023 3:58 PM CDT Pulse 90 08/18/2023 3:58 PM CDT Temperature 36.8 ??C (98.3 ??F) 06/11/2022 3:44 PM CS T Respiratory Rate 16 04/15/2022 7:23 PM PHOTO GRAPHICS LIBRARIAN Oxygen Saturation 98% 06/11/2022 3:44 PM PHOTO GRAPHICS LIBRARIAN Inhaled Oxygen Concentration - - Weight 92.5 kg (204 lb) 08/18/2023 3:58 PM CDT Height 167 cm (5' 5.75) 06/16/2023 2:51 PM PHOTO GRAPHICS LIBRARIAN Body Mass Index 33.18 06/16/2023 2:51 PM PHOTO GRAPHICS LIBRARIAN Plan of Treatment Health Maintenance Due Date [...] ANTI HIV 1/2 Routine 05/26/2023 2:10 PM PHOTO GRAPHICS LIBRARIAN High-risk in first trimester ANTI HCV Routine 05/26/2023 2:10 PM PHOTO GRAPHICS LIBRARIAN High-risk in first trimester HPV THIN PREP Routine 02/14/2023 10:55 AM CDT Screening for cervical cancer from Last 3 Months or Most Recently Relevant to Health Maintenance Results * ANTI HCV (05/26/2023 2:10 PM PHOTO GRAPHICS LIBRARIAN) HEPATITIS C ANTIBODY Non-Reacti ve Non-React brianna 05/26/2023 11:21 PM PHOTO GRAPHICS LIBRARIAN [facility] Comment:Please note, per [...] Unknown Venipuncture / Unknown 05/26/2023 2:10 PM PHOTO GRAPHICS LIBRARIAN 05/26/2023 2:10 PM PHOTO GRAPHICS LIBRARIAN Brooke James CNM SEND OUTS Performing Organization Address City/[facility] Co de Phone Number [facility] [address] [place] [address], * ANTI HIV 1/2 (05/26/2023 2:10 PM PHOTO GRAPHICS LIBRARIAN) HIV-1/HIV-2 SCREEN Non-Reacti ve Non-Reacti ve 05/26/2023 11:[address] [facility] Comment:HIV-1 p24 and HIV-1/ HIV-2 Ab Not Detected. Blood BLOOD SPECIMEN / Unknown Venipuncture / Unknown 05/26/2023 2:10 PM PHOTO GRAPHICS LIBRARIAN 05/26/2023 2:10 PM PHOTO GRAPHICS LIBRARIAN Brooke James CNM SEND OUTS Performing Organization Address [facility] Co de Phone Number [facility] [address] [place] [address], * HPV HIGH RISK (02/14/2023 10:55 AM CDT) TYPE 16 Negative Negative 02/20/2023 11:[address] [facility] TYPE 18 Negative Negative 02/20/2023 11:[address] [facility] OTHER HIGH RISK TYPES Negative Negative 02/20/2023 11:[address] [facility] Other (Cervical) Non-Blood / Unknown 02/14/2023 10:55 AM CDT 02/18/2023 7:07 AM CDT Narrative [facility] - 02/20/2023 11:10 AM CDT HPV types 16, 18, 31, 33, 35, 39, 45, 51, 52, 56, 58, 59, 66 and 68 DNA were undetectable or below the pre-set threshold. Methodology: Jimmy Annmarie 4800 HPV Test Nicky Alda Crum [facility] MICRO[facility]OLOG[facility] [address] [place] [address], from Last 3 Months or Most Recently [...] 1:38 PM 06/19/2017 1:47 PM Care Teams Aeronautical Drafter Relationship Specialty Start Date End Date Ramon Bedolla TRACK WATCHMAN [address] [place] [address] PCP - General Nurse Practitioner 04/27/18 Lisa Macias CNM [address] [place] [address] Referring Provider Certified Nurse Director Mortgage 06/30/23
[2024-01-06 17:47] LABS: Rapid Plasma Reagin (RPR) Non Reactive (Non Reactive)
== END 2024-01-06 14:25 | disposition home or self-care (01) | DRG 560 ==
LOC: OB OUT 01-07 15:17 → OB 01-07 15:17
PROVIDERS: Advanced Practice Midwife; Admitting Provider Advanced Practice Midwife; Visit Provider Advanced Practice Midwife
DX: O48.0 Post-term pregnancy (principal); O70.1 Second degree perineal laceration during delivery; O90.81 Anemia of the puerperium; O67.9 Intrapartum hemorrhage, unspecified; D62 Acute posthemorrhagic anemia; R55 Syncope and collapse; O99.214 Obesity complicating childbirth; J45.909 Unspecified asthma, uncomplicated; G43.909 Migraine, unspecified, not intractable, without status migrainosus; Z91.410 Personal history of adult physical and sexual abuse; Z3A.41 41 weeks gestation of pregnancy; Z37.0 Single live birth
CPT/HCPCS: 36415; 85018; 85025; 86592; G0463; A9270; J2590; J7120

== ENCOUNTER 2024-01-21 15:32 | Outpatient (CLI) | payer BC, SELFPAY ==
--- OUTSIDE RECORDS SUMMARY | 2024-01-21 15:41 | XMS_ITS | Clinical Summary ---
Author Organization [facility] Address [place], [place] [address] Care Team Providers Care Csr Name Role Phone Ramon Bedolla NP Primary Care Provider [phone] Lisa Macias CNAustin Unavailable [phone] Allergies Active Allergy Reactions Criticality Noted Date [...] daily. To rash on back 06/16/2023 Active Ukumllqo-Ev-Elm-Fe- FA tab tabletIndications:H igh-risk in first trimester [...] 08/05/2023 Low-lying placenta in second trimester 4 [facility] Supervision of high-risk 4 Overview: Napoleon Munoz : 1990 [facility] ULTRASOUND/TESTING PATIENT Support person name: Solo [...] 2, IAB x 1 PREVIOUS ULTRASOUNDS: 08/05/23 ([facility] L2@19w5d) EFW 314 grams, percentile: 50, [...] from internal os on level II ultrasound ~[facility] recommends follow up ultrasound at 28-32 [...] margins 07/26/19 NIL/HPV negative 08/16/20 NIL/HPV+ 09/14/20 [place]: Negative 02/20/22 NIL/HPV Negative 02/14/23 NIL/HPV Negative [...] Estimated Date of Delivery 05/26/2023 - Present (01/21/2024) 1 12/25/2023 (set by Kika Tate on 05/26/2023 based on Alternate MICHELE Entry) Dating Summary Based On MICHELE GA Diff Last Menstrual Period on 03/20/2023 (Exact Date) 12/25/2023 Same Alternate MICHELE Entry 12/25/2023 Working Vitals Pregravid Weight Height TWG (As of 01/21/2024) Pregrav id BMI 85.7 kg (189 lb) [...] 09/30/2023 - 27w5d - Pete Lancaster MBBS [facility] Ultrasound Visit Your patient had an ultrasound with [facility] on 09/30/2023. The report is ready and can be found in the Results review section of the [facility]. Recommendations regarding further care are listed [...] -No follow up ultrasounds were scheduled with [facility]. COMMENT: The patient was seen by [...] as needed. Medical Decision Making: Low Complexity 03144 Limited Diagnoses including with suspected placenta previa. Limited Data including review of prior ultrasound and review of prior external notes. Minimal risk of morbidity or mortality to the fetus from additional testing. Services Provided: Procedures Code FOLLOW UP GROWTH 23883.0 TRANSVAGINAL ULTRASOUND 28573.0 Progress Notes - OB Encounte r - [...] pt to register for childbirth classes. 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 [...] 08/05/23 Your patient had an ultrasound with [facility] on 08/05/23 The report is ready and can be found in the Results review section of the [facility]. The Impression from the report is [...] -The patient was directed to schedule with [facility] as discussed at their visit today. -Patient directed to schedule at the front end java developer on the way out, or to call [...] as needed. Medical Decision Making: Moderate Level 04424 Moderate number/complexity of problems including an undiagnosed new problem with uncertain prognosis (low lying placenta) Moderate amount and/or complexity of Data reviewed and analyzed including review of prior ultrasound, ordering another ultrasound, and review of prior external notes Low risk of morbidity or mortality from amniocentesis which was considered and declined. Services Provided: Procedures Code DETAIL ANATOMY 94009.0 Progress Notes - OB Encounte r - [...] screening should be considered if BMI >25 (-Pakistani w/ BMI >23) and any of the following criteria are met: Physical inactivity (sedentary lifestyle) First-degree relative with diabetes (type not specified) High-risk race/ethnicity (, , , Pakistani, ) History of macrosomic (>4,000 g or [...] Anatomy ultrasound ordered: yes Level II at [facility] Reviewed AVS with patient and has no other questions. Lisa Macias APRN CNM 06/30/2023 11:15 AM MARTHA charting has been reviewed and approved for this patient? s record. Jasmina Mari CNM .................... 06/30/2023 2:02 PM BOARD PRESS OPERATOR Progress Notes - OB Encounte r - [...] Dietary restrictions: No Maternal ethnicity: /White, Language: [place]. Partner ethnicity: /White, Language: [place]. ALLERGIES Allergies Allergen Reactions Amoxicillin Rash Tolerates [...] needed for Sleep., Disp: , Rfl: 0 Ysmdeijy-Ov-Vei-Fe-FA tab tablet, Take 1 Tablet by mouth [...] recurrent loss, DVT/PE, stroke, genetic mutations): no. MANAGER PHARMACEUTICAL HISTORY Latest Ref Rng & Units 03/31/2018 [...] Path Comment (Beaker) This patient's Pap test [id number] (LSIL) is reviewed. The Pap test findings appear to be explained by the findings in the current specimens. Case Report (specimen info) Pathology Report Case: [id number] Authorizing Provider: Megha Garcia Collected: 03/31/2018 1125 MD Birgit Ordering Location: [facility] Received: 03/31/2018 1241 Clinic Pathologist: Luiza Fuentes MD Specimens: A) - Cervix, 3 oclock B) - Cervix, 7 oclock C) - Endocervical Curettings Pathology Report Case: [id number] Authorizing Provider: Ángela Bunch MD Collected: 04/28/2018 1149 Ordering Location: [facility] Received: 04/28/2018 1227 Pathologist: Scout Hartley MD Specimen: Cervical Cone / LEEP, cervical cone LEEP, stitch at 12:00 Gynecologic Cytology Report Case: [id number] Authorizing Provider: Ramon Bedolla NP Collected: 07/26/2019 1410 Ordering Location: [facility] Received: 07/26/2019 1459 Clinic First Screen: Shyanne Gastelum Rescreen: Denae Lozano MD Specimen: MANAGER PHARMACEUTICAL ThinPrep Vial Screening, Cervical Gynecologic Cytology Report Case: [id number] Authorizing Provider: Ramon Bedolla NP Collected: 08/16/2020 0917 Ordering Location: [facility] Received: 08/16/2020 1013 Clinic First Screen: Baccam, Minie Specimen: MANAGER PHARMACEUTICAL ThinPrep Vial Screening, Cervical Gynecologic Cytology Report Case: [id number] Authorizing Provider: Ramon Bedolla NP Collected: 02/20/2022 1015 Ordering Location: [facility] Received: 02/20/2022 1041 Clinic First Screen: Baccam, Minie Rescreen: Tammy Freedman Specimen: MANAGER PHARMACEUTICAL ThinPrep Vial Screening, Cervical Gynecologic Cytology Report Case: [id number] Authorizing Provider: Nicky Crum CNM Collected: 02/14/2023 1055 Ordering Location: [facility] Received: 02/14/2023 1055 Clinic First Screen: Baccam, Minie Specimen: MANAGER PHARMACEUTICAL ThinPrep Vial Screening, Cervical Clinical info LGSIL YUE III 03/10/18 LSIL 03/31/18 COLP:YUE 2-3 04/28/18 LEEP:YUE 3, clear margins 07/26/19 NIL/HPV negative 08/16/20 NIL/HPV+ 09/14/20 [place]: Negative 02/20/22 NIL/HPV Negative 02/14/23 NIL/HPV Negative [...] Marital Status: , name: Napoleon, 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 Brooke James CNM DNP, DIE INSPECTOR, CNM.................... [facility]wif[facility] Program Added to tracks BOARD PRESS OPERATOR Last Filed Vital Signs Vital Sign Reading Time Taken Comments Blood Pressure 120/74 08/18/2023 3:58 PM CDT Pulse 90 08/18/2023 3:58 PM CDT Temperature 36.8 ??C (98.3 ??F) 06/11/2022 3:44 PM CS T Respiratory Rate 16 04/15/2022 7:23 PM HARDBOARD PRESS OPERATOR Oxygen Saturation 98% 06/11/2022 3:44 PM HARDBOARD PRESS OPERATOR Inhaled Oxygen Concentration - - Weight 92.5 kg (204 lb) 08/18/2023 3:58 PM CDT Height 167 cm (5' 5.75) 06/16/2023 2:51 PM HARDBOARD PRESS OPERATOR Body Mass Index 33.18 06/16/2023 2:51 PM HARDBOARD PRESS OPERATOR Plan of Treatment Health Maintenance Due Date [...] ANTI HIV 1/2 Routine 05/26/2023 2:10 PM HARDBOARD PRESS OPERATOR High-risk in first trimester ANTI HCV Routine 05/26/2023 2:10 PM HARDBOARD PRESS OPERATOR High-risk in first trimester HPV THIN PREP Routine 02/14/2023 10:55 AM CDT Screening for cervical cancer from Last 3 Months or Most Recently Relevant to Health Maintenance Results * ANTI HCV (05/26/2023 2:10 PM HARDBOARD PRESS OPERATOR) HEPATITIS C ANTIBODY Non-Reacti ve Non-React brianna 05/26/2023 11:21 PM HARDBOARD PRESS OPERATOR [facility] Comment:Please note, per www .CDC.gov: If a patient is known to be at high risk of HCV infection, or is symptomatic, and the physician's suspicion of HCV infection is high, HCV RNA testing is often employed and is of diagnostic value, even after an initial negative anti-HCV test result. Blood BLOOD SPECIMEN / Unknown Venipuncture / Unknown 05/26/2023 2:10 PM HARDBOARD PRESS OPERATOR 05/26/2023 2:10 PM HARDBOARD PRESS OPERATOR Brooke James CNM SEND OUTS Performing Organization Address City/[facility] Co de Phone Number [facility] [address] [place] [address], * ANTI HIV 1/2 (05/26/2023 2:10 PM HARDBOARD PRESS OPERATOR) HIV-1/HIV-2 SCREEN Non-Reacti ve Non-Reacti ve 05/26/2023 11:04 PM HARDBOARD PRESS OPERATOR [facility] Comment:HIV-1 p24 and HIV-1/ HIV-2 Ab Not Detected. Blood BLOOD SPECIMEN / Unknown Venipuncture / Unknown 05/26/2023 2:10 PM HARDBOARD PRESS OPERATOR 05/26/2023 2:10 PM HARDBOARD PRESS OPERATOR Brooke James CNM SEND OUTS Performing Organization Address [facility] Co de Phone Number [facility] [address] [place] [address], * HPV HIGH RISK (02/14/2023 10:55 AM CDT) TYPE 16 Negative Negative 02/20/2023 11:10 AM CDT [facility] TYPE 18 Negative Negative 02/20/2023 11:10 AM CDT [facility] OTHER HIGH RISK TYPES Negative Negative 02/20/2023 11:10 AM CDT [facility] Other (Cervical) Non-Blood / Unknown 02/14/2023 10:55 AM CDT 02/18/2023 7:07 AM CDT Narrative [facility] - 02/20/2023 11:10 AM CDT HPV types 16, 18, 31, 33, 35, 39, 45, 51, 52, 56, 58, 59, 66 and 68 DNA were undetectable or below the pre-set threshold. Methodology: Jimmy Annmarie 4800 HPV Test Nicky Alda Crum [facility] MICROBIOLOGY [facility] [address] [place] [address], from Last 3 Months or Most Recently [...] 1:38 PM 06/19/2017 1:47 PM Care Teams Csr Relationship Specialty Start Date End Date Ramon Bedolla SENIOR ECOLOGIST [address] [place] [address] PCP - General Nurse Practitioner 04/27/18 Lisa Macias CNM [address] [place] [address] Referring Provider Certified Nurse Maintenance Team Member 06/30/23
--- OUTSIDE RECORDS SUMMARY | 2024-01-21 15:41 | XMS_ITS | Clinical Summary ---
Author Organization [facility] Address [address] [place] [address] Care Team Providers Care Analysis Intern Name Role Phone Elsewhere, Pcp Primary Care Provider Unavailabl e Source Comments Patient records contain information from all sites at [facility]. For routine questions regarding patient records, call [phone] during business hours, M-F 8:00 AM - 5:00 PM Central Time. Record requests for emergency care only can be directed to [phone] at any time.[facility] Allergies Active Allergy Reactions Criticality Noted Date Comments Lidocaine Hcl Other (see comments) 01/06/2024 dizzy Penicillins Rash Medium 05/26/2016 Tolerates cephalosporins Pollen Extracts Itching 04/27/2018 DUST, POLLEN, MOLD, ....itchy watery eyes, stuffiness Medications No known medications Active Problems Problem Noted Date Diagnosed Date Asthma NOS 12/18/2011 Overview (10/08/2016): Asthma, Unspecified Encounters Date Type Department Care Team Description 01/06/2024 9:31 PM CDT - 01/07/2024 1:17 AM CDT Emergency [place] [facility] [address] [place] [phone] Ean Santiago M.D. Lightheadedness (Primary Dx); Other Specified Anemias Discharge Disposition: Home or Self Care from Last 3 Months Immunizations Name Administration Dates Next Due DTaP (Infanrix, [employer]edia) 01/10/1997,10/18/1994, 1991,1991 MMR 11/25/2003 Td (Adult), adsorbed 11/25/2003 Social History Tobacco Use Types Packs/Day Years Used Date Smoking Tobacco: Never Dental Answer Date Recorded Dental: Regular Dentist Unknown 04/15/20 Sex and Gender Information Value Date Recorded Sex Assigned at Not on file Gender Identity Not on file Sexual Orientation Not on file Last Filed Vital Signs Vital Sign Reading Time Taken Comments Blood Pressure 103/76 01/07/2024 1:00 AM CDT Pulse 97 01/07/2024 12:43 AM CDT Temperature 36.7 ??C (98.1 ??F) 01/06/2024 9:39 PM CD T Respiratory Rate 17 01/06/2024 10:45 PM CDT Oxygen Saturation 97% 01/07/2024 12:43 AM CDT walking Inhaled Oxygen Concentration - - Weight 103 kg (226 lb 3.1 oz) 01/06/2024 9:42 PM CDT Height 168 cm (5' 6.14) 03/02/2012 8:44 AM CDT Body Mass Index - - Plan of Treatment Health Maintenance Due Date Last Done Comments HIV Screening 1991 Hepatitis C Screening 1991 Pneumococcal vaccine (0-64 years) (1 of 2 - PCV) 1997 Hepatitis B Vaccines (1 of 3 - 19+ 3-dose series) 2010 Asthma Action Plan 04/15/2022 Asthma Control Test Questionnaire 04/15/2022 Asthma Management/Exacerbation Questionnaire (AMQ/AEQ) 04/15/2022 Depression Screening (Annual PHQ-2) 05/19/2023 COVID-19 Vaccine (1 - 2022- season) 2024 Influenza Vaccine (#1) 2024 Cervical Cancer Screening 02/20/2025 02/20/2022 DTaP,Tdap,and Td Vaccines (6 - Td or Tdap) 07/25/2029 07/26/2019, 11/25/2003, 01/10/1997, Additional history exists HPV Vaccines Aged Out No longer eligi ble based on patient's age to complete this topic Procedures Procedure Name Priority Date/Time Associated Diagnosis Comments ECG STAT 01/06/2024 10:36 PM CDT TESTING LOCATION STAT 01/06/2024 9:45 PM CDT COMPREHENSIVE METABOLIC PANEL, S/P STAT 01/06/2024 9:45 PM CDT CBC WITH DIFFERENTIAL, B STAT 01/06/2024 9:45 PM CDT TYPE AND SCREEN STAT 01/06/2024 9:45 PM CDT from Last 3 Months Results * ECG 12 Lead (01/06/2024 10:36 PM CDT) Ventricular Rate ECG/Min 81 BPM MUSE MA Interval 150 ms MUSE QRSD Interval 80 ms MUSE QT Interval 388 ms MUSE QTC Interval 450 ms MUSE P [place] 40 degrees MUSE R [place] 15 degrees MUSE T Wave [place] 13 degrees MUSE 01/06/2024 10:3 6 PM CDT 01/06/2024 10:38 PM CDT Impressions MUSE - 01/06/2024 10:38 PM CDT Sinus rhythm Nonspecific T wave abnormality No previous ECGs available Reviewed by HOWARD Wilkins Narrative Procedure Note Jeremy Alonso M.B.B.S. - 01/06/2024 IMPRESSION: Sinus rhythm Nonspecific T wave abnormality No previous ECGs available Reviewed by HOWARD Wilkins Ean Santiago M.D. ECG ORDERABL ES Performing Organization Address City/[facility] Co de Phone Number MUSE NA * Testing Location (01/06/2024 9:45 PM CDT) Testing Location [facility] DEFAULT 01/06/2024 9:47 PM CDT [facility] Blood 01/06/2024 9:45 PM CDT 01/06/2024 9:47 PM CDT Ean Santiago M.D. LAB BLOOD BA NK TEST ORDERABLES [facility] [address] [place] [address], [facility] [place] [address] [place] [address] * (ABNORMAL) CBC with Differential, Blood (01/06/2024 9:45 PM CDT) [facility] Hemoglobin 7.8(L) 11.6 - 15.0 g/dL 01/06/2024 9:50 PM CDT [facility] Hematocrit 23.6(L) 35.5 - 44.9 % 01/06/2024 9:50 PM CDT [facility] Erythrocytes 2.51(L) 3.92 - 5.13 x10(12)/L 01/06/2024 9:50 PM CDT [facility] MCV 94.0 78.2 - 97.9 fL 01/06/2024 9:50 PM CDT [facility] RBC Distrib Width 13.6 12.2 - 16.1 % 01/06/2024 9:50 PM CDT [facility] Platelet Count 278 157 - 371 x10(9)/L 01/06/2024 9:50 PM CDT [facility] Leukocytes 14.0(H) 3.4 - 9.6 x10(9)/L 01/06/2024 9:50 PM CDT [facility] Neutrophils 9.64(H) 1.56 - 6.45 x10(9)/L 01/06/2024 9:50 PM CDT [facility] Lymphocytes 3.00 0.95 - 3.07 x10(9)/L 01/06/2024 9:50 PM CDT [facility] Monocytes 0.86(H) 0.26 - 0.81 x10(9)/L 01/06/2024 9:50 PM CDT [facility] Eosinophils 0.46 0.03 - 0.48 x10(9)/L 01/06/2024 9:50 PM CDT [facility] Basophils 0.06 0.01 - 0.08 x10(9)/L 01/06/2024 9:50 PM CDT [facility] Blood (Blood, Venous) 01/06/2024 9:45 PM CDT 01/06/2024 9:47 PM CDT Ean Santiago M.D. LAB BLOOD AD D-ON [facility] [address] [place] [address], [facility] [place] [address] [place] [address] * Type and Screen (with Reflex Antibody ID) (01/06/2024 9:45 PM CDT) ABO Group B 01/06/2024 10:22 PM CDT [facility] Rh Type POS 01/06/2024 10:22 PM CDT [facility] Antibody Screen NEG 10:30 PM CDT [facility] Type & Screen Expiration 01/09/2024 23:59 01/06/2024 10:30 PM CDT [facility] ELXM Eligible Y 01/06/2024 10:30 PM CDT [facility] Blood (Blood, Venous) 01/06/2024 9:45 PM CDT 01/06/2024 9:47 PM CDT Ean Santiago M.D. LAB BLOOD BA NK TEST ORDERABLES [facility] [address] [place] [address], [facility] in [address] [place] [address] * (ABNORMAL) Comprehensive Metabolic Panel (01/06/2024 9:45 PM CDT) Potassium, P 3.7 3.6 - 5.2 mmol/L 01/06/2024 10:12 PM CDT [facility] Sodium, P 139 135 - 145 mmol/L 01/06/2024 10:12 PM CDT [facility] Chloride, P 107 98 - 107 mmol/L 01/06/2024 10:12 PM CDT [facility] Bicarbonate, P 21(L) 22 - 29 mmol/L 01/06/2024 10:12 PM CDT [facility] Anion Gap, P 11 7 - 15 01/06/2024 10:12 PM CDT [facility] BUN (Blood Urea Nitrogen), P 11 6 - 21 mg/dL 01/06/2024 10:12 PM CDT [facility] Creatinine 0.76 0.59 - 1.04 mg/dL 01/06/2024 10:12 PM CDT [facility] Estimated GFR (eGFR) >90 >=60 mL/min/BS A 01/06/2024 10:12 PM CDT [facility] Comment: Estimated GFR calculated using the 2020 CKD_EPI creatinine equation. Calcium, Total, P 9.1 8.6 - 10.0 mg/dL 01/06/2024 10:12 PM CDT [facility] Glucose, P 93 70 - 140 mg/dL 01/06/2024 10:12 PM CDT [facility] Protein, Total, P 5.2(L) 6.3 - 7.9 g/dL 01/06/2024 10:12 PM CDT [facility] Albumin, P 3.0(L) 3.5 - 5.0 g/dL 01/06/2024 10:12 PM CDT [facility] Aspartate Aminotransferase (AST), P 18 8 - 43 U/L 01/06/2024 10:12 PM CDT [facility] Alkaline Phosphatase, P 90 35 - 104 U/L 01/06/2024 10:12 PM CDT [facility] Alanine Aminotransferase (ALT), P 12 7 - 45 U/L 01/06/2024 10:12 PM CDT [facility] Bilirubin, Total, P <0.2 0.0 - 1.2 mg/dL 01/06/2024 10:12 PM CDT [facility] Blood (Blood, Venous) 01/06/2024 9:45 PM CDT 01/06/2024 9:47 PM CDT Ean Santiago M.D. LAB BLOOD AD D-ON [facility] [address] [place] [address], [facility] [place] [address] [place] [address] from Last 3 Months Care Teams Analysis Intern Relationship Specialty Start Date End Date Elsewhere, Pcp PCP - General Internal Medicine 01/06/24
--- OUTSIDE RECORDS SUMMARY | 2024-01-21 15:41 | XMS_ITS ---
Author Organization [facility] Address [address] [place] [address] Care Team Providers Care Seat Cover Cutter Name Role Phone Unavailable Unavailable Unavailable Surgery Details Not on file Complications Check Surgery Details section. Procedure Estimated Blood Loss Check Surgery Details section. Procedure Findings Check Surgery Details section. Procedure Specimens Taken Check Surgery Details section.
--- OUTSIDE RECORDS SUMMARY | 2024-01-21 15:41 | XMS_ITS | Referral Summary ---
Author Organization [facility] Address [address] [place] [address] Care Team Providers Care Inner Tube Inserter Name Role Phone Elsewhere, Pcp Primary Care Provider Unavailabl e Source Comments Patient records contain information from all sites at [facility]. For routine questions regarding patient records, call [phone] during business hours, M-F 8:00 AM - 5:00 PM Central Time. Record requests for emergency care only can be directed to [phone] at any time.[facility] Encounters Date Type Department Care Team Description 01/06/2024 9:31 PM CDT - 01/07/2024 1:17 AM CDT Emergency [place] [facility] [address] [place] [phone] Ean Santiago M.D. Lightheadedness (Primary Dx); Other Specified Anemias Discharge Disposition: Home or Self Care from Last 3 Months Allergies Active Allergy Reactions Criticality Noted Date Comments Lidocaine Hcl Other (see comments) 01/06/2024 dizzy Penicillins Rash Medium 05/26/2016 Tolerates cephalosporins Pollen Extracts Itching 04/27/2018 DUST, POLLEN, MOLD, ....itchy watery eyes, stuffiness Medications No known medications Active Problems Problem Noted Date Diagnosed Date Asthma NOS 12/18/2011 Overview (10/08/2016): Asthma, Unspecified Immunizations Name Administration Dates Next Due DTaP [...] Mass Index - - Plan of Treatment Not on file Procedures Procedure Name Priority Date/Time Associated Diagnosis [...] CDT) Ventricular Rate ECG/Min 81 BPM MUSE LA Interval 150 ms MUSE QRSD Interval 80 ms MUSE QT Interval 388 ms MUSE QTC Interval 450 ms MUSE P [place] 40 degrees MUSE R [place] 15 degrees MUSE T Wave [place] 13 degrees MUSE 01/06/2024 10:3 6 PM CDT 01/06/2024 10:38 PM CDT Impressions MUSE - 01/06/2024 10:38 PM CDT Sinus rhythm Nonspecific T wave abnormality No previous ECGs available Reviewed by HOWARD Wilkins Narrative Procedure Note Jeremy Alonso M.B.B.S. - 01/06/2024 IMPRESSION: Sinus rhythm Nonspecific T wave abnormality No previous ECGs available Reviewed by HOWARD Wilkins Ean Santiago M.D. ECG ORDERABL ES MUSE NA * Testing Location (01/06/2024 9:45 PM CDT) Testing Location [facility] DEFAULT 01/06/2024 9:47 PM CDT [facility] Blood 01/06/2024 9:45 PM CDT 01/06/2024 9:47 PM CDT Ean Santiago M.D. LAB BLOOD BA NK TEST ORDERABLES Performing Organization Address [facility] Co de Phone Number [facility] [address] [place] [address], [facility] [place] [address] [place] [phone] * (ABNORMAL) CBC with Differential, Blood (01/06/2024 9:45 PM CDT) Hemoglobin 7.8(L) 11.6 - 15.0 g/dL 01/06/2024 [...] Ean Santiago M.D. LAB BLOOD AD D-ON [facility] [address] [place] [address], [facility] in [address] [address] * Type and Screen (with Reflex Antibody [...] M.D. LAB BLOOD BA NK TEST ORDERABLES [facility] [address] [place] [address], [facility] [place] [address] [place] [address] * (ABNORMAL) Comprehensive Metabolic Panel (01/06/2024 9:45 [...] Ean Santiago M.D. LAB BLOOD AD D-ON [facility] [email or web address] [facility] [address] [facility] [place] [address], [facility] [place] [address] [place] [address] from Last 3 Months Care Teams Inner Tube Inserter Relationship Specialty Start Date End Date Elsewhere, Pcp PCP - General Internal Medicine 01/06/24
--- OUTSIDE RECORDS SUMMARY | 2024-01-21 15:41 | XMS_ITS | Encounter Summary ---
Author Organization [facility] Address [address] [place] [address] Care Team Providers Care Cloth Desizing Range Operator Chief Name Role Phone Elsewhere, Pcp Primary Care Provider Unavailabl e Reason for Referral * Outpatient (Routine) - Authorized Specialty Diagnoses / Procedures Referred By Contac t Referred To Contact Emergency Medicine Diagnoses Lightheadedness Other Specified Anemias Ean Santiago M.D. [address] [phone] [facility] Region Referral ID Status Reason Start Date Expiration Date V isits Requested Visits Authorized [id number] Authorized 01/07/2024 07/08/2025 1 1 Scheduling Instructions Establish care. Anemic at 7.8 with lightheadedness after giving at outside hospital yesterday. Consider iron transfusion. Reason for Visit * Reason Comments Near Syncope Encounter Details Date Type Department Care Team (Late st Contact Info) Description 01/06/2024 9:31 PM CDT - 01/07/2024 1:17 AM CDT Emergency [place] [facility] [address] [place] [id number] Ean Santiago M.D. [address] [phone] Lightheadedness (Primary Dx); Other Specified Anemias Discharge Disposition: Home or Self Care Social History Tobacco Use Types Packs/Day Years Used Date Smoking Tobacco: Never Dental Answer Date Recorded Dental: Regular Dentist Unknown 04/15/20 22 Sex and Gender Information Value Date Recorded Sex Assigned at Not on file Gender Identity Not on file Sexual Orientation Not on file documented as of this encounter Last Filed Vital Signs Vital Sign Reading [...] 3.1 oz) 01/06/2024 9:42 PM CDT Height - - Body Mass Index - - documented in this encounter Discharge Instructions * Discharge Instructions* Ean Santiago M.D. - 01/07/2024 1:06 AM CDT You were examined and treated today in the [facility] Emergency Department (ED) on an emergency basis. This visit is not a substitute for comprehensive and ongoing medical care. In most cases, you must let your primary physician evaluate you again. Call your doctor today to advise them ofyour ED visit. Tell your doctor about any new or lasting problems. After you leave the ED today, please follow the instructions provided to you. documented in this encounter ED Notes * Ean Santiago M.D. - 01/07/2024 1:06 AM CDT SUBJECTIVE CHIEF COMPLAINT/REASON FOR VISIT Near Syncope HISTORY OF PRESENT ILLNESS Patient is a very pleasant 33-year-old female who presents with lightheadedness and near-syncope. Patient had a vaginal delivery at outside hospital yesterday and was discharge with hemoglobin of 7.8. She did not receive transfusion and was instructed to take iron supplements. Since returning home she has been saturating less than 1 pad per hour. She has had no vomiting or falls. Lightheadedness this evening. Denies chest pain or shortness of breath. Denies fever or chills. Has had no vomiting. REVIEW OF SYSTEMS All other systems reviewed and are negative. OBJECTIVE Initial Vitals Temperature 01/06/24 2139 36.7 ??C Pulse Rate 01/06/242138 94 Heart Rate 01/06/242138 94 Resp Rate 01/06/242138 16 Blood Pressure 01/06/242138 120/74 SpO2 01/06/242138 98 % Pain Score 01/06/242139 2 PHYSICAL EXAMINATION Constitutional: No distress. HENT: Head: Normocephalic and atraumatic. Nose: No nasal discharge. Mouth/Throat: Mucous membranes are moist. Eyes: Conjunctivae are normal. Cardiovascular: Normal rate. Pulmonary/Chest: Effort normal. Musculoskeletal: General: Normal range of motion. Cervical back: Normal range of motion. Neurological: Alert and oriented to person, place, and time. Skin: Skin is warm and dry. Psychiatric: She has a normal mood and affect. Behavior is normal. ASSESSMENT/PLAN Patient is a very pleasant 34-year-old female 1 day status post vaginal delivery who presents with lightheadedness. Soaking less than 1 pad per hour. Denies fever, vomiting or chest pain. Has had no falls. Normal heart rate and blood pressure. Patient has a normal sodium potassium and glucose. I believe electrolyte abnormality much less likely. EKG reveals no arrhythmia. Hemoglobin 7.8 no significant change from discharge earlier today. Patient is new to [facility]. Will request family medicine follow-up. Patient feels comfortable with the home going. Discussed risks and benefits of transfusion. Atthis point patient is comfortable returning home. Return precautions discussed. ED Course as of 01/07/24105Jan 06, 20242316 ECG 12 Lead Sinus rhythm Nonspecific T wave abnormality No previous ECGs available 2316 Hemoglobin(!): 7.8 Discharge yesterday with a hemoglobin of Final Diagnoses: as of 01/07/24 010 Lightheadedness Other Specified Anemias Ean Santiago M.D. 01/07/24107 * Rohini Cardona RDeisyN. - 01/06/2024 9:57 PM CDT Pt had a vaginal at 0130am yesterday the . Did have a some bleeding and hgb dropped 4 points. Pt was discarchaged today and felt ok until this evening when she nearly had a syncopal episode. She felt lower back pain, lightheadedness and nausea and laid down before she passed out. Pt did have a syncopal episode at the hospital after giving and losing so much blood. Upon presentation to the ED patient is slightly pale but mentating well, has some lightheadedness, and 2/10 lower back pain. Reports some vaginal bleeding this evening but feels it is more normal. Rohini Cardona R.N. 01/06/24 2200 documented in this encounter Plan of Treatment Scheduled Referrals Name Type Priority Associated Diagnoses Orde r Schedule POST ED VISIT Family Medicine Outpatient Referral Routine Lightheadedness Other Specified Anemias Expected: 01/08/2024 (Approximate), Expires: 04/08/2025 documented as of this encounter Procedures Procedure Name Priority Date/Time Associated Diagnosis Comments ECG STAT 01/06/2024 10:36 PM CDT TESTING LOCATION STAT 01/06/2024 9:45 PM CDT CBC WITH DIFFERENTIAL, B STAT 01/06/2024 9:45 PM CDT TYPE AND SCREEN STAT 01/06/2024 9:45 PM CDT COMPREHENSIVE METABOLIC PANEL, S/P STAT 01/06/2024 9:45 PM CDT documented in this encounter Results * ECG 12 Lead (01/06/2024 10:36 PM CDT) Ventricular Rate ECG/Min 81 BPM MUSE ID Interval 150 ms MUSE QRSD Interval 80 ms MUSE QT Interval 388 ms MUSE QTC Interval 450 ms MUSE P Leeper 40 degrees MUSE R Leeper 15 degrees MUSE T Wave Leeper 13 degrees MUSE 01/06/2024 10:3 6 PM [...] M.D. ECG ORDERABL ES Performing Organization Address City/[facility]/ZIP Co de Phone Number MUSE NA * Testing Location (01/06/2024 9:45 PM CDT) Testing Location [facility] DEFAULT 01/06/2024 9:47 PM CDT [facility] Blood 01/06/2024 9:45 PM CDT 01/06/2024 9:47 PM CDT Ean Santiago M.D. LAB BLOOD BA NK TEST ORDERABLES Performing Organization Address [facility] de Phone Number [facility] [address] [place] [address], [facility] [place] [address] [place] [phone] * (ABNORMAL) Comprehensive Metabolic Panel (01/06/2024 9:45 [...] Ean Santiago M.D. LAB BLOOD AD D-ON [facility] [address] [facility] [place] [place] [address], [facility] [place] [address] [phone] * (ABNORMAL) CBC with Differential, Blood (01/06/2024 [...] Ean Santiago M.D. LAB BLOOD AD D-ON [facility] [address] [facility] [place] [address], [facility] [place] [address] [place] [phone] * Type and Screen (with Reflex Antibody [...] M.D. LAB BLOOD BA NK TEST ORDERABLES [facility] [address] [place] [address], [facility] [place] [address] [place] [address] documented in this encounter Visit Diagnoses Diagnosis Lightheadedness- Primary Other Specified Anemias documented in this encounter Additional Health Concerns Assessment Noted Time PHQ-9 Depression Total Score: 3 03/02/20 12 9:07 AM CDT documented as of this encounter Care Teams Cloth Desizing Range Operator Chief Relationship Specialty Start Date End Date Elsewhere, Pcp PCP - General Internal Medicine 01/06/24 documented as of this encounter
== END 2024-01-21 15:33 | disposition home or self-care (01) ==
LOC: FRMREF 15:32
PROVIDERS: Visit Provider Advanced Practice Midwife
DX: D64.9 Anemia, unspecified (principal)
CPT/HCPCS: 82728

== ENCOUNTER 2024-09-20 13:53 | Outpatient (CLI) | payer BC, SELFPAY ==
--- NOTE | 2024-09-20 14:00 | CRLHL7_ITS ---
For Patients: As a result of the Century Cures Act, medical imaging exams and procedure reports are released immediately into your electronic medical record. You may view this report before your referring provider. If you have questions, please contact your health care provider. OBSTETRICAL ULTRASOUND TRANSVAGINAL, 09/20/2024 CLINICAL INDICATION: Dating and viability. LMP: 07/27/2024 MICHELE by LMP: 05/03/2025 Gestational age: 7 weeks 6 days Previous ultrasound: No TECHNIQUE: Real-time shah-scale imaging of the fetus was performed transvaginal. Transvaginal imaging was performed for better visualization. FINDINGS: CRL: 1.9 cm, 8 weeks 3 days; MICHELE 04/29/2025 heart rate: 178 BPM Gestational sac: 3.6 cm, appears within normal limits Yolk sac: 3.1 mm, appears within normal limits Right ovary: Within normal limits; 3.7 x 1.7 x 2.2 cm, CL Left ovary: Within normal limits; 2.9 x 1.3 x 2.1 cm IMPRESSION: 1. Single living intrauterine measuring 8 weeks 3 days and sonographic due date of 04/29/2025. 2. Inferior subchorionic hemorrhage measures 1.6 x 0.6 x 0.6 cm. JAREN RITCHIE M.D. Diagnostic Radiologist [email or web address] Transcribed: 4:[address]/Dictated by: Jaren Ritchie MD @ 09/20/2024 3:57:00 PM (Electronically Signed)
== END 2024-09-20 13:54 | disposition home or self-care (01) ==
LOC: US 13:53
PROVIDERS: Visit Provider Advanced Practice Midwife
DX: Z34.91 Encounter for supervision of normal pregnancy, unspecified, first trimester (principal); O20.9 Hemorrhage in early pregnancy, unspecified; Z3A.08 8 weeks gestation of pregnancy
CPT/HCPCS: 76817

== ENCOUNTER 2024-09-28 10:50 | Outpatient (CLI) | payer BC, SELFPAY | END 2024-09-28 10:51 | disposition home or self-care (01) | LOC: NFLDREF 10-05 23:47 | PROVIDERS: Visit Provider Advanced Practice Midwife | DX: Z34.91 Encounter for supervision of normal pregnancy, unspecified, first trimester (principal); Z3A.08 8 weeks gestation of pregnancy | CPT/HCPCS: 83020; 83021; 84443; 85660; 86592; 86703; 86704; 86706; 86762; 86787; 86803; 86850; 86900; 86901; 87340 ==

== ENCOUNTER 2024-11-23 13:05 | Outpatient (CLI) | payer BC, SELFPAY | END 2024-11-23 13:06 | disposition home or self-care (01) | LOC: NFLDREF 11-25 16:42 | PROVIDERS: Visit Provider Advanced Practice Midwife | DX: Z34.92 Encounter for supervision of normal pregnancy, unspecified, second trimester (principal); Z3A.17 17 weeks gestation of pregnancy | CPT/HCPCS: 87086 ==

== ENCOUNTER 2024-12-21 15:43 | Outpatient (CLI) | payer BC, SELFPAY ==
--- NOTE | 2024-12-21 15:45 | CRLHL7_ITS ---
For Patients: As a result of the 21st Century Cures Act, medical imaging exams and procedure reports are released immediately into your electronic medical record. You may view this report before your referring provider. If you have questions, please contact your health care provider. OB ULTRASOUND SURVEY LMP: 07/27/2024. MICHELE by LMP: 05/03/2025. GA: 21 w, 0 d. INDICATION: anatomy. TECHNIQUE: Real time shah scale imaging of the fetus was performed. Evaluate anatomy. Transabdominal imaging performed. position: Transverse. Head to maternal right. Cervix: Visualized. Technique: Transabdominal. Length of closed cervix: 4.0 cm. Placenta/cord: Posterior. Technique: Transabdominal. Placenta tip to internal OS: 5.4 cm. Umbilical Cord: 3-vessel cord. Placenta insertion: Central. Amniotic Fluid: 4.8 cm SDP (greater than/equal to: 2- less than 8 cm). SURVEY: Observed Structures. Calvarium/Spine: Cerebellum: 2.3 cm, 23 w 0 d. Cisterna Magna: 3.2 mm. Nuchal Fold: 4.0 mm. Lateral Ventricle: 6.5 mm. CSP: Yes. Midline Falx: Yes. Choroid Plexus: Yes. Spine: Yes. Abdomen: Stomach: Yes. Abd Cord Insertion: Yes. Urinary Bladder: Yes. Kidneys: Yes. Diaphragm: Yes. Face: Nose/lips: Yes. Orbital view: Yes. Profile: Yes. Limbs: Upper Extremities: Yes. Lower Extremities: Yes. Hands: Yes. Feet: Yes. Vascular: 4-Chamber Heart: See impression. LVOT: Yes. RVOT: Yes. 3VV: Yes. 3VTV: Yes. BPD: 5.2 cm. 21 w, 4 d, 73.1 percent. HC: 19.9 cm. 22 w, 1 d, 84.1 percent. AC: 18.4 cm. 23 w, 1 d, 95.5 percent. FL: 3.8 cm. 22 w, 2 d, 81.8 percent. FL/AC ratio: 20.84 percent. HC/AC ratio: 1.08. heart rate: 139 bpm. age by this US: 22 w, 3 d. MICHELE by this US: 04/23/2025. EFW: 1523.40 g. Weight: 1 lbs, 2 oz. Percentile by MICHELE: >97 percent. IMPRESSION: 1. Incomplete visualization of the four-chamber heart due to position. Remainder of the anatomic survey normal. Short-term follow-up recommended. 2. Sonographic gestational age 22 weeks 3 days and sonographic due date 04/23/2025. Sonographic age 10 days ahead of the clinical age. 3. Estimated weight greater than the 97th percentile. Abdominal circumference 96th percentile. Jaren Cerna M.D. Diagnostic Radiologist [email or web address] DSM/naun jj/Dictated by: Jaren Cerna MD @ 12/21/2024 5:37:00 PM (Electronically Signed)
== END 2024-12-21 15:44 | disposition home or self-care (01) ==
LOC: US 15:43
PROVIDERS: Visit Provider Advanced Practice Midwife
DX: Z36.2 Encounter for other antenatal screening follow-up (principal); O35.BXX0 Maternal care for other (suspected) fetal abnormality and damage, fetal cardiac anomalies, not applicable or unspecified; O36.63X0 Maternal care for excessive fetal growth, third trimester, not applicable or unspecified; Z3A.22 22 weeks gestation of pregnancy
CPT/HCPCS: 76805

== ENCOUNTER 2025-01-11 13:24 | Outpatient (CLI) | payer BC, SELFPAY ==
--- NOTE | 2025-01-11 14:00 | CRLHL7_ITS ---
For Patients: As a result of the Cures Act, medical imaging exams and procedure reports are released immediately into your electronic medical record. You may view this report before your referring provider. If you have questions, please contact your health care provider. OB ULTRASOUND FOLLOW-UP MISSING VIEW, TRANSABDOMINAL Clinical History: MICHELE by LMP: 05/03/2025. GA: 24 w, 0 d. Single. Comparison: 12/21/2024, 09/20/2024. INDICATION: Follow-up missing view (4 chamber heart view). TECHNIQUE: Real time shah scale imaging of the fetus was performed. Transabdominal imaging performed. CERVIX: Visualized. POSITIONING: Transverse right. AMNIOTIC FLUID: 5.0 cm SDP (N: greater than 2 x 1 cm) PLACENTA: Technique: Transabdominal. PLACENTA POSITION: Posterior. DOPPLER: heart rate: 150 bpm. IMPRESSION: 1. Normal four chamber heart. 2. No evidence of hydronephrosis. Jaren Cerna M.D. Diagnostic Radiologist [email or web address] SP/Dictated by: Jaren Cerna MD @ 01/11/2025 4:17:00 PM (Electronically Signed)
== END 2025-01-11 13:25 | disposition home or self-care (01) ==
LOC: US 13:24
PROVIDERS: Visit Provider Midwife
DX: O36.8320 Maternal care for abnormalities of the fetal heart rate or rhythm, second trimester, not applicable or unspecified (principal); Z3A.24 24 weeks gestation of pregnancy
CPT/HCPCS: 76816

== ENCOUNTER 2025-02-18 10:14 | Outpatient (CLI) | payer BC, SELFPAY | END 2025-02-18 10:15 | disposition home or self-care (01) | PROVIDERS: Visit Provider Advanced Practice Midwife | DX: Z34.93 Encounter for supervision of normal pregnancy, unspecified, third trimester (principal) | CPT/HCPCS: 86592 ==

== ENCOUNTER 2025-04-05 15:16 | Outpatient (CLI) | payer BC, SELFPAY | END 2025-04-05 15:17 | disposition home or self-care (01) | LOC: NFLDREF 04-09 18:02 | PROVIDERS: Visit Provider Advanced Practice Midwife | DX: Z34.93 Encounter for supervision of normal pregnancy, unspecified, third trimester (principal) | CPT/HCPCS: 87081; 87653 ==

== ENCOUNTER 2025-04-19 14:00 | Outpatient (CLI) | payer BC, SELFPAY ==
--- NOTE | 2025-04-19 14:00 | CRLHL7_ITS ---
For Patients: As a result of the Century Cures Act, medical imaging exams and procedure reports are released immediately into your electronic medical record. You may view this report before your referring provider. If you have questions, please contact your health care provider. OB ULTRASOUND FOLLOW-UP GROWTH, TRANSABDOMINAL Clinical History: MICHELE by LMP: 05/03/2025. GA: 38 w, 0 d. Single. Comparison: Ultrasound 12/21/2024. INDICATION: Growth greater than 97% at 20 week ultrasound. TECHNIQUE: Real time shah scale imaging of the fetus was performed. Transabdominal imaging performed. CERVIX: Not visualized. POSITIONING: Vertex. AMNIOTIC FLUID: 4.2 cm SDP (N: greater than 2 x 1 cm) PLACENTA: Technique: Transabdominal. PLACENTA POSITION: Posterior. DOPPLER: heart rate: 147 bpm. BIOMETRY: BPD: 9.6 cm. 39 w, 2 d, 94 percent. HC: 36.0 cm. OOR, greater than 97 percent. AC: 35.1 cm. 39 w, 0 d, 88 percent. FL: 7.4 cm. 37 w, 5 d, 45 percent. FL/AC ratio: 21.03 percent. HC/AC ratio: 1.03. EFW: 3688 g. Weight: 8 lbs, 2 oz. age by this US: 38 w, 5 d. MICHELE by this US: 04/28/2025. Percentile by MICHELE: 86 percent. IMPRESSION: 1. Sonographic gestational age 38 weeks 5 days and sonographic due date 04/28/2025. Sonographic age is 5 days ahead of the clinical age. 2. Estimated weight 86th percentile. Abdominal circumference 88th percentile. Head circumference greater than 97th percentile. Jaren Cerna M.D. Diagnostic Radiologist [email or web address] SP/Dictated by: Jaren Cerna MD @ 04/19/2025 4:09:00 PM (Electronically Signed)
== END 2025-04-19 14:01 | disposition home or self-care (01) ==
LOC: US 14:01
PROVIDERS: Visit Provider Advanced Practice Midwife
DX: O09.893 Supervision of other high risk pregnancies, third trimester (principal); Z39.1 Encounter for care and examination of lactating mother; Z3A.38 38 weeks gestation of pregnancy
CPT/HCPCS: 76816

== ENCOUNTER 2025-04-21 23:28 | Outpatient (CLI) | payer BC, SELFPAY ==
[2025-04-21 23:46] VITALS: BP 124/75; PULSE 81
[2025-04-21 23:49] VITALS: RESP 16; TEMP 36.5
--- NOTE | 2025-04-22 01:11 | PC.OBNST ---
NST Note NST Note Start: 04/21/25 23:31 Freq: ONCE Status: Active Protocol: Document 04/22/25 01:09 DAVID (Rec: 04/22/25 01:11 DAVID Desktop) NST Note 5 Para (# of births) 1 EDC 05/03/25 Gestational Age In 38 Weeks & 3 Days Weeks & Days Patient Presented Contractions/cramping with Complaint(s) of Reactive Yes Appropriate for Yes Gestational Age RN Wale RN Date 04/22/25 Reactive Yes Appropriate for Yes Gestational Age RN Dhara RN Date 04/22/25 OB NST charge Yes Complete NST Note Yes via Write Note The provider's electronic signature indicates the NST is reactive/appropriate for gestational age. *Note to provider: If an addendum is required, open the patient's chart and click on the note under the Nurse/Allied Health tab.
== END 2025-04-22 01:20 | disposition home or self-care (01) ==
LOC: OB OUT 23:28 → OB 23:28
PROVIDERS: PCP Midwife; Visit Provider Midwife
DX: O47.1 False labor at or after 37 completed weeks of gestation (principal); Z3A.38 38 weeks gestation of pregnancy
CPT/HCPCS: 59025; G0463